=== PATIENT | male | born 1945 | race Caucasian/White ===

== ENCOUNTER → 2018-12-05 12:21 | Outpatient (CLI) | payer MEDICARE, SELFPAY ==
--- NOTE | 2018-12-05 12:26 | XR_ITS ---
XR chest 2V HISTORY: Shortness of breath, swelling and fatigue ITS.REASON: SOB ORDERING PHYSICIAN: Lucina Vásquez APRN PATIENT AGE: 73 years COMPARISON: None FINDINGS: There are no previous exams available for comparison. There is a bipolar pacemaker present from left subclavian approach. Normal heart size. There is patchy density in the right mid to upper lung zone and in the right infrahilar region which may be due to an area of atelectasis or infiltrate or even pulmonary fibrotic change. No previous exams are available for comparison. There are mild degenerative changes in the thoracic spine. IMPRESSION: Patchy density right upper lobe and in the right infrahilar region which may be due to an area of atelectasis, infiltrate, or fibrosis.
== END ==
PROVIDERS: PCP Nurse Practitioner; Visit Provider Nurse Practitioner
DX: R06.02 Shortness of breath (principal)
CPT/HCPCS: 71046

== ENCOUNTER → 2018-12-13 07:51 | Outpatient (CLI) | payer MEDICARE, SELFPAY ==
--- NOTE | 2018-12-13 | CA_ITS ---
PROCEDURE: 2-D M-mode and color Doppler study INDICATIONS FOR THE TEST: Chest pain COPD Heart Murmur Tobacco Smoking Palpitations FatigueX Syncope EdemaX Hypertension Diabetes Mellitus Rheumatic Fever SOBXDOE Obesity Hyperlipidemia Family History HD Additional History PP PATIENT INFORMATION HEIGHT: 74 WEIGHT:180 GENDER: Male B/P:110/70 2-D/M-MODE INTERPRETATION: 2-D MEASUREMENTS OBSERVED VALUES IN CMS Right Ventricular Dimension (RVDd) 2.6 Interventricular Septum (Thickness)(IVsd) .9 Left Ventricular Internal Dimensions(LVIDd) 5.4 Left Ventricular Posterior Wall (Thickness)(LVPWd) .9 Aortic Root 3.4 Aortic Cusp Separation 1.9 Left Atrial Dimensions (LAD) 3.5 2D 1. Left atrium is mildly enlarged, left ventricle is normal size, there is no concentric left ventricular hypertrophy, visually estimated ejection fraction 55% with no regional wall motion abnormality. 2. The right atrium and right ventricle are mildly enlarged with normal contractility. 3. The aortic valve is thickened and gastritis leaflet continue to display mobility. 4. The mitral and tricuspid valvular grossly normal. 5. The pulmonic valve is poorly visualized. 6. No significant pericardial effusion noted. DOPPLER INTERROGATION: Doppler interrogation of the aortic, mitral and tricuspid valvular presence of mild mitral and tricuspid regurgitation, tricuspid regurgitation jet velocity is inadequate for calculation of the right ventricular systolic pressure, grade 1 diastolic dysfunction seen without tissue Doppler evidence of raised left atrial pressure. CONCLUSION: 1. Mild biatrial enlargement, normal left ventricular size, visually estimated ejection fraction 55% with no regional wall motion abnormality, grade 1 diastolic dysfunction seen without tissue Doppler evidence of raised left atrial pressure. 2. Mildly enlarged right ventricle with normal contractility. 3. Thickened and calcified aortic valve without aortic stenosis aortic insufficiency. 4. Mild mitral and tricuspid regurgitation 5. No significant pericardial effusion noted.
== END ==
PROVIDERS: PCP Family Medicine; Visit Provider Nurse Practitioner
DX: R60.0 Localized edema (principal)
CPT/HCPCS: 93306

== ENCOUNTER → 2018-12-20 09:26 | Outpatient (CLI) | payer MEDICARE, SELFPAY ==
[2018-12-20 10:23] LABS: Basophils % 0.1 % (0.1-2.0); Eosinophils % 0.1 % (0.1-12.0); Hematocrit 42.1 % (42.0-52.0); Hemoglobin 13.5 g/dL (14.1-18.0); Lymphocytes # 2.1 K/mm3 (0.7-4.5); Lymphocytes % 22.6 % (10-50); Mean Corpuscular HGB Conc 32.1 g/dL (31.8-35.4); Mean Corpuscular Hemoglobin 29.4 pg (27.0-31.2); Mean Corpuscular Volume 91.5 fl (80-94); Mean Platelet Volume 7.4 fl (7.4-10.4); Monocytes # 0.7 K/mm3 (0.1-1.0); Monocytes % 7.3 % (1.7-9.3); Neutrophils # 6.4 K/mm3 (1.8-7.8); Neutrophils % 69.8 % (37.0-80.0); Platelet Count 219 K/mm3 (142-424); Red Cell Distribution Width 13.6 % (11.5-17.5); White Blood Count 9.1 K/mm3 (4.8-10.8)
[2018-12-20 13:43] LABS: Chol/HDL Ratio 3.1 (1-3.5); Cholesterol 152 mg/dL (140-200); Creatine Kinase 52 U/L (39-308); HDL Cholesterol 49 mg/dL (27-67); Iron 71 ug/dl (28-170); LDL Cholesterol 91 mg/dL (0-130); Magnesium 1.9 mg/dL (1.4-2.2); Prostate Specific Ag Screen 5.6 ng/mL (0.0-4.0); Thyroid Stimulating Hormone 2.44 uIU/ml (0.358-3.740); Triglycerides 60 mg/dL (30-200); VLDL Cholesterol 12 mg/dL (0-40)
[2018-12-21 17:12] LABS: Vitamin B12 299 pg/mL (232-1245)
[2018-12-21 17:13] LABS: Folate 9.6 ng/mL (>3.0); Vitamin D 25 Hydroxy 39.1 ng/mL (30.0-100.0)
== END ==
PROVIDERS: Visit Provider Family Medicine
DX: E78.5 Hyperlipidemia, unspecified (principal); R53.83 Other fatigue; R60.0 Localized edema; Z12.5 Encounter for screening for malignant neoplasm of prostate; D64.9 Anemia, unspecified
CPT/HCPCS: 36415; 80061; 82550; 82607; 82652; 82746; 83540; 83735; 84443; 85025; G0103

== ENCOUNTER → 2019-04-01 11:25 | Outpatient (CLI) | payer MEDICARE, SELFPAY ==
[2019-04-01 14:26] LABS: Prostate Specific Ag, Diagnost 6.51 ng/mL (0.0-4.0)
== END ==
PROVIDERS: Visit Provider Urology
DX: R97.20 Elevated prostate specific antigen [PSA] (principal)
CPT/HCPCS: 36415; 84153

== ENCOUNTER → 2019-06-18 14:54 | Outpatient (CLI) | payer MEDICARE, SELFPAY ==
[2019-06-18 17:24] LABS: Prostate Specific Ag, Diagnost 0.05 ng/mL (0.0-4.0)
== END ==
PROVIDERS: Visit Provider Urology
DX: C61 Malignant neoplasm of prostate (principal)
CPT/HCPCS: 36415; 84153

== ENCOUNTER → 2020-07-27 11:31 | Outpatient (CLI) | payer MEDICARE, SELFPAY ==
[2020-07-28 10:37] LABS: Covid-19 Nasal PCR Sendout P&C Negative
== END ==
PROVIDERS: PCP Family Medicine; Visit Provider Dermatology
DX: Z01.818 Encounter for other preprocedural examination (principal); Z20.822 Contact with and (suspected) exposure to COVID-19
CPT/HCPCS: U0004

== ENCOUNTER → 2020-08-02 17:28 | Outpatient (CLI) | payer MEDICARE, SELFPAY | PROVIDERS: PCP Family Medicine; Referring Provider Urology; Visit Provider Urology | DX: Z01.818 Encounter for other preprocedural examination (principal); Z20.822 Contact with and (suspected) exposure to COVID-19 | CPT/HCPCS: U0003 ==

== ENCOUNTER 2021-10-10 12:53 | Emergency (ER) | payer MEDICARE, SELFPAY ==
[2021-10-10 12:54] VITALS: BP 135/83; PULSE 64; RESP 18; TEMP 36.8; O2SAT 94; BMI 24.4
--- NOTE | 2021-10-10 12:54 | HMH.EDSOB ---
ED Disposition Clinical Impression: Pneumonia Qualifiers: Pneumonia type: due to unspecified organism Laterality: bilateral Disposition: Home, Self-Care Condition on Discharge: Fair Instructions: Pneumonia-Adult Additional Instructions: He is continue taking all medications as prescribed. Follow-up with your primary care physician in about 2 to 3 days tomorrow have a checkup. Return to the emergency department immediately if you feel worse in any way. Prescriptions: levoFLOXacin [Levaquin 500mg tab] 500 mg PO DAILY #10 tab Transmission Status: Pending to [id number] Referrals: Juan Peterson MD [Primary Care Provider] - - Critical Care Critical Care Time: No Attestation: On , the high probability of a clinically significant, sudden or life threatening deterioration of the following system(s) required my full and direct attention, intervention and personal management. The time I documented below is in addition to time spent performing reported procedures but includes the following listed in this critical care notation. Medical Decision Making - Medical Records Medical records reviewed: Yes: I reviewed the patient's medical records. - Michael Inquiry Pt receiving controlled substance: No Vital Signs: 10/10/21 12:54 10/10/21 13:31 10/10/21 14:00 Temperature 98.2 F Temperature Source Oral Pulse Rate 57 L 53 L Pulse Rate [Right] 64 Respiratory Rate 18 Blood Pressure 120/78 136/72 Blood Pressure [Right Arm] 135/83 Blood Pressure Mean 98 89 Blood Pressure Mean [Right Arm] 100 Blood Pressure Source [Right Arm] Automatic Cuff Blood Pressure Position [Right Arm] Sitting 02 Sat by Pulse Oximetry 94 L 96 Oxygen Delivery Method Room Air - Lab Data Lab results reviewed: Yes: I reviewed the patient's lab results. Lab Results 10/10/21 13:17: WBC 11.6 H, RBC 3.77 L, Hgb 12.1 L, Hct 36.8 L, MCV 97.6 H, MCH 32.1 H, MCHC 32.9, RDW 15.0, Plt Count 193, MPV 8.4, Neut % (Auto) 78.3, Lymph % (Auto) 16.8, [place] % (Auto) 3.5, Eos % (Auto) 0.9, Baso % (Auto) 0.5, Neut # (Auto) 9.1 H, Lymph # (Auto) 2.0, [place] # (Auto) 0.4, Eos # (Auto) 0.1, Baso # (Auto) 0.1 10/10/21 13:17: Sodium 136, Potassium 4.2, Chloride 105, Carbon Dioxide 25, Anion Gap 10.2, BUN 23 H, Creatinine 1.20, Estimated Creat Clear 64, Estimated GFR 59, Est GFR ( Amer) 72, Glucose 99, Calcium 7.6 L, Total Bilirubin 1.4 H, AST 41, ALT 32, Alkaline Phosphatase 118, Total Protein 8.3 H, Albumin 3.9, Globulin 4.4 H, Albumin/Globulin Ratio 0.9 L Result diagrams: 10/10/21 13:17 10/10/21 13:17 Orders (Tests/Meds): ED MEDICATIONS Generic Name Dose Route Start Last Admin Trade Name Freq PRN Reason Stop Dose Admin Sodium Chloride 10 ml 10/10/21 13:08 Sodium Chloride 0.9% 10ml Flush Syringe IV 11/09/21 13:07 NEEDED PRN Maintain IV Site Discontinued Medications Generic Name Dose Route Start Last Admin Trade Name Freq PRN Reason Stop Dose Admin Iopamidol 70 ml 10/10/21 14:28 10/10/21 14:29 Iopamidol-370 (76%);100ml Bottle IV 10/10/21 14:29 70 ml ONCE ONE Administration Sodium Chloride 10 ml 10/10/21 14:28 10/10/21 14:29 Sodium Chloride 0.9% 10ml Syr (Rad Only) IV 10/10/21 14:29 10 ml ONCE ONE Administration Sodium Chloride 50 ml 10/10/21 14:28 10/10/21 14:29 0.9 % Sodium Chloride 50 Ml Vial IV 10/10/21 14:29 50 ml ONCE ONE Administration - CT Data CT Scan: Chest Time Received: 15:[address] Reviewed: Yes: I have viewed the radiologist's interpretation Preliminary Findings: Abnormal (No evidence of pulmonary embolus, diffuse airspace disease consistent with atypical pneumonia and/or edema.) Medical Decision Narrative: Patient's work-up in the emergency department did not reveal any evidence of pulmonary emboli. The CT of the chest does show airspace disease which could be secondary to edema and or pneumonia. The patient does not have any pitting pedal e
--- NOTE | 2021-10-10 13:02 | CT_ITS ---
PROCEDURE INFORMATION: Exam: CTA Chest With Contrast Exam date and time: 10/10/2021 2:13 PM Age: 75 years old Clinical indication: Shortness of breath; Additional info: R/O pe// patient has known bone mets and previous prostrate cancer, having SOB with history of previous dvt- 70ml of isovue given for contrast study / unable to lift arms overhead due to cancer in right shoulder and painful. TECHNIQUE: Imaging protocol: Computed tomographic angiography of the chest with contrast. 3D rendering (Not supervised by radiologist): MIP and/or 3D reconstructed images were created by the technologist. Radiation optimization: All CT scans at this facility use at least one of these dose optimization techniques: automated exposure control; mA and/or kV adjustment per patient size (includes targeted exams where dose is matched to clinical indication); or iterative reconstruction. Contrast material: ISOVUE; Contrast volume: 70 ml; Contrast route: INTRAVENOUS (IV); COMPARISON: CR (CHEST PA, CHEST, CHEST PA) 12/05/2018 12:47 PM FINDINGS: Tubes, catheters and devices: Dual chamber pacemaker/cardioverter in appropriate position with lead tips in the right atrium and right ventricle. Pulmonary arteries: Normal. No pulmonary emboli. Aorta: The aorta demonstrates mild atherosclerotic calcification. No acute pathology in the aorta. Thyroid: The thyroid gland is normal. Lungs: Prior right upper lobectomy. Diffuse and multifocal/bilateral ground-glass and patchy airspace opacifications are seen throughout the lungs. There is also interlobular septal thickening appreciated throughout the lungs as well. There is mid to basal predominant right pleural thickening. There is mild right basal pleuroparenchymal scarring likewise appreciated. Pleural spaces: There are no pleural effusions present. There is no evidence of pneumothorax. Heart: There is calcification of the aortic valve annulus. There is severe atherosclerotic calcification of the coronary arteries. The heart is mildly enlarged. No pericardial thickening or effusion. Lymph nodes: Unremarkable. No enlarged lymph nodes. Kidneys and ureters: There are multiple right renal collecting system calcifications. Bones/joints: Redemonstration of known multifocal sclerotic and lytic skeletal metastasis. For example, there is a sclerotic metastasis in the posterior segment of the right 10th rib (image 98 series 5). As another example, there is extensive sclerotic and lytic metastasis in the right humeral head and throughout the visualized segments of the right humerus. As another example, there is sclerotic metastasis appreciated in the left scapula (image 23 series 5). As a last example, there are sclerotic metastatic lesions appreciated in the T11 vertebra (images 57 and 53 of series 1002). No acutely displaced skeletal fractures are appreciated. Soft tissues: Unremarkable. Other findings: The visualized intra-abdominal structures demonstrate no acute findings. IMPRESSION: 1. No definitive evidence for pulmonary emboli. 2. Diffuse and severe bilateral acute airspace disease. Differential diagnosis would include: Pulmonary edema, atypical infectious pneumonia, or chemotherapy induced pneumonitis (if the patient is receiving chemotherapeutic treatment). 3. Mid to basal right posterior pleural thickening. Differential diagnosis would include: Sequela of prior treatment or radiation, chronic pleural fibrosis, or infiltrative pleural disease (felt less likely). 4. Prior right upper lobectomy with expected right upper lobe scarring and atelectasis. 5. Known extensive skeletal metastasis. 6. Other incidental fi
[2021-10-10 13:31] VITALS: BP 120/78; PULSE 57; O2SAT 96
[2021-10-10 13:34] LABS: Basophils # 0.1 K/mm3 (0-0.2); Basophils % 0.5 % (0.1-2.0); Eosinophils # 0.1 K/mm3 (0.0-0.4); Eosinophils % 0.9 % (0.1-12.0); Hematocrit 36.8 % (42.0-52.0); Hemoglobin 12.1 g/dL (14.1-18.0); Lymphocytes % 16.8 % (10-50); Mean Corpuscular HGB Conc 32.9 g/dL (31.8-35.4); Mean Corpuscular Hemoglobin 32.1 pg (27.0-31.2); Mean Corpuscular Volume 97.6 fl (80-94); Mean Platelet Volume 8.4 fl (7.4-10.4); Monocytes # 0.4 K/mm3 (0.1-1.0); Monocytes % 3.5 % (1.7-9.3); Neutrophils # 9.1 K/mm3 (1.8-7.8); Neutrophils % 78.3 % (37.0-80.0); Platelet Count 193 K/mm3 (142-424); Red Blood Count 3.77 M/mm3 (4.60-6.20); White Blood Count 11.6 K/mm3 (4.8-10.8)
[2021-10-10 13:46] LABS: Chloride 105 mmol/L (98-107); Potassium 4.2 mmoL/L (3.5-5.1); Sodium 136 mmol/L (136-145)
[2021-10-10 13:49] LABS: Alanine Aminotransferase 32 U/L (12-78); Albumin Level 3.9 g/dl (3.5-5.0); Albumin/Globulin Ratio 0.9 (1.1-1.8); Alkaline Phosphatase 118 U/L (38-126); Anion Gap 10.2 mEq/L (5-15); Aspartate Amino Transferase 41 U/L (17-59); Bilirubin,Total 1.4 mg/dl (0.2-1.3); Blood Urea Nitrogen 23 mg/dl (9-20); Calcium 7.6 mg/dl (8.4-10.2); Carbon Dioxide 25 mmol/L (22.0-30.0); Creatinine Clearance Estimated 64 mL/min (50-200); Estimated Glomerular Filt Rate 59 ml/min (>60); GFR (African American) 72 ML/MIN (>60); Globulin 4.4 g/dL (1.3-3.2); Glucose 99 mg/dl (74-100); Total Protein,Serum 8.3 g/dl (6.3-8.2)
[2021-10-10 14:00] VITALS: BP 136/72; PULSE 53
--- NOTE | 2021-10-10 14:02 | PC.NURSE ---
Pt resting in bed. Advises he feels better with the O2 at 2lpm, feels like he isn't so short of air. No new needs at this time
--- NOTE | 2021-10-10 14:10 | PC.NURSE ---
Pt going over for CT
--- NOTE | 2021-10-10 15:12 | PC.NURSE ---
Advised pt we were waiting on his CT results. No new needs at this time
[2021-10-10 15:36] VITALS: BP 134/79; PULSE 74; RESP 16; TEMP 36.8; O2SAT 98
== END 2021-10-10 15:38 | disposition home or self-care (01) ==
PROVIDERS: Emergency Provider Emergency Medicine; PCP Family Medicine
DX: J18.9 Pneumonia, unspecified organism (principal); I10 Essential (primary) hypertension; Z79.01 Long term (current) use of anticoagulants; Z85.118 Personal history of other malignant neoplasm of bronchus and lung; Z85.830 Personal history of malignant neoplasm of bone; Z86.718 Personal history of other venous thrombosis and embolism
CPT/HCPCS: 71275; 80053; 85025; 99284; Q9967

== ENCOUNTER 2022-01-14 13:34 | Inpatient (IN) | payer MEDICARE, SELFPAY ==
[2022-01-14] VITALS (24 sets, daily range): BP systolic 143–198; BP diastolic 77–99; PULSE 60–105; RESP 12–20; TEMP 36.4–37; O2SAT 95–100; BMI 23.7; BMI 23.3
--- NOTE | 2022-01-14 13:35 | PC.NURSE ---
pt arrived 1334- pt transported to CT per EMS stretcher upon his arrival to ED as stroke alert protocol. Radiology staff notified of stroke alert pt incoming airplane captain to arrival of pt and at arrival of EMS. ER MD did quick assessment of pt on EMS stretcher upon pt arrival at pt was going to CT scanner.
--- NOTE | 2022-01-14 13:38 | HMH.EDNEU ---
ED Disposition Clinical Impression: CVA (cerebral vascular accident) Qualifiers: CVA mechanism: unspecified Qualified Code(s): I63.9 - Cerebral infarction, unspecified Disposition: Admitted As Inpatient Condition on Discharge: Serious Referrals: Narendra Silverio MD [Primary Care Provider] - - Critical Care Critical Care Time: No Attestation: On , the high probability of a clinically significant, sudden or life threatening deterioration of the following system(s) required my full and direct attention, intervention and personal management. The time I documented below is in addition to time spent performing reported procedures but includes the following listed in this critical care notation. Medical Decision Making - Medical Records Medical records reviewed: Yes: I reviewed the patient's medical records. - Michael Inquiry Pt receiving controlled substance: No Vital Signs: 01/14/22 13:34 01/14/22 14:20 01/14/22 14:30 Temperature 98.6 F Temperature Source Oral Pulse Rate 62 62 Pulse Rate [Radial] 62 Respiratory Rate 16 12 12 Blood Pressure 165/93 H 176/90 H Blood Pressure [Right Radial Artery] 186/86 H Blood Pressure Mean 121 118 Blood Pressure Mean [Right Radial Artery] 119 Blood Pressure Position [Right Radial Artery] Sitting 02 Sat by Pulse Oximetry 98 98 98 Oxygen Delivery Method Room Air Room Air Room Air 01/14/22 14:50 01/14/22 15:00 01/14/22 15:11 Temperature Temperature Source Pulse Rate 60 66 66 Pulse Rate [Radial] Respiratory Rate 13 13 14 Blood Pressure 177/93 H 176/87 H 168/92 H Blood Pressure [Right Radial Artery] Blood Pressure Mean 111 116 117 Blood Pressure Mean [Right Radial Artery] Blood Pressure Position [Right Radial Artery] 02 Sat by Pulse Oximetry 99 98 100 Oxygen Delivery Method Room Air Room Air Room Air 01/14/22 15:25 01/14/22 15:30 01/14/22 15:41 Temperature Temperature Source Pulse Rate 62 68 65 Pulse Rate [Radial] Respiratory Rate 13 19 16 Blood Pressure 184/94 H 173/99 H 162/80 H Blood Pressure [Right Radial Artery] Blood Pressure Mean 122 117 107 Blood Pressure Mean [Right Radial Artery] Blood Pressure Position [Right Radial Artery] 02 Sat by Pulse Oximetry 99 100 100 Oxygen Delivery Method Room Air Room Air Room Air 01/14/22 15:51 01/14/22 16:00 Temperature Temperature Source Pulse Rate 66 68 Pulse Rate [Radial] Respiratory Rate 18 20 Blood Pressure 185/91 H 185/94 H Blood Pressure [Right Radial Artery] Blood Pressure Mean 108 109 Blood Pressure Mean [Right Radial Artery] Blood Pressure Position [Right Radial Artery] 02 Sat by Pulse Oximetry 99 99 Oxygen Delivery Method Room Air Room Air - Lab Data Lab results reviewed: Yes: I reviewed the patient's lab results. Lab Results 01/14/22 13:40: WBC 5.7, RBC 3.97 L, Hgb 12.6 L, Hct 38.0 L, MCV 95.7 H, MCH 31.8 H, MCHC 33.3, RDW 15.1, Plt Count 96 L, MPV 9.1, Neut % (Auto) 56.8, Lymph % (Auto) 29.6, [place] % (Auto) 8.4, Eos % (Auto) 4.2, Baso % (Auto) 1.0, Neut # (Auto) 3.2, Lymph # (Auto) 1.7, [place] # (Auto) 0.5, Eos # (Auto) 0.2, Baso # (Auto) 0.1 01/14/22 13:40: PT 14.0 H, INR 1.26 H, APTT 27.5 01/14/22 13:41: Sodium 136, Potassium 4.6, Chloride 105, Carbon Dioxide 27, Anion Gap 8.6, BUN 22 H, Creatinine 0.90, Estimated Creat Clear 74, Estimated GFR 82, Est GFR ( Amer) 100, Glucose 137 H, Calcium 7.6 L Result diagrams: 01/14/22 13:40 01/14/22 13:41 Orders (Tests/Meds): ED MEDICATIONS Generic Name Dose Route Start Last Admin Trade Name Freq PRN Reason Stop Dose Admin Calcium Gluconate 2,000 mg/ 120 mls @ 60 mls/hr 01/14/22 14:38 01/14/22 14:54 Sodium Chloride IV 01/14/22 16:37 60 mls/hr ONCE ONE Administration Discontinued Medications Generic Name Dose Route Start Last Admin Trade Name Freq PRN Reason Stop Dose Admin Aspirin 324 mg 01/14/22 14:44 01/14/22 14:55 Aspirin 81mg Chewable Tablet PO 0
--- NOTE | 2022-01-14 13:39 | PC.NURSE ---
PT RETURN TO CT
--- NOTE | 2022-01-14 13:44 | CT_ITS ---
FINAL REPORT TECHNIQUE: Axial images were performed through the brain.This study was performed with techniques to keep radiation doses as low as reasonably achievable, (ALARA). Individualized dose reduction techniques using automated exposure control or adjustment of mA and/or kV according to the patient''s size were employed. CLINICAL HISTORY: CVA, stroke alert FINDINGS: There is mild atrophy. The ventricles are normal in size for the degree of atrophy. There is no extra-axial fluid or midline shift. There is no evidence of acute hemorrhage or mass. IMPRESSION: Atrophy. No acute intracranial process. Reviewed, Interpreted and Dictated by Mark Freitas MD Transcribed by Awais Yeager Authenticated and [facility]
--- NOTE | 2022-01-14 13:45 | XR_ITS ---
FINAL REPORT CLINICAL HISTORY: CVA, hx of lung cancer FINDINGS: There is mild cardiomegaly. There is a left-sided pacemaker. The mediastinum is normal. There are chronic changes in the lung bases. There are no pleural effusions. There is no pneumothorax. There is no osseous abnormality. IMPRESSION: No acute cardiopulmonary process Reviewed, Interpreted and Dictated by Mark Freitas MD Transcribed by Awais Yeager Authenticated and [facility]
--- NOTE | 2022-01-14 13:56 | ECG_ITS ---
APPROVED REPORT Exam: Resting ECG HR:60 bpm ECG Measurements Heart Rate 60 AXES NH 219 P 15 QRSd 92 QRS 17 QT 447 T -5 QTc 448 Conclusion SINUS RHYTHM WITH FIRST DEGREE AV BLOCK ABNORMAL ECG UNCONFIRMED REPORT Electronically signed by : Bassam Bella MD 01/16/2022 16:29:19
--- NOTE | 2022-01-14 13:56 | PC.NURSE ---
pt daughter john called upon pt arrival, left her phone number for return call for any medical decision making related patients has dementia . Notified ER MD and primary nurse Mariangelrn
[2022-01-14 14:01] LABS: Basophils # 0.1 K/mm3 (0-0.2); Eosinophils # 0.2 K/mm3 (0.0-0.4); Eosinophils % 4.2 % (0.1-12.0); Hemoglobin 12.6 g/dL (14.1-18.0); Lymphocytes # 1.7 K/mm3 (0.7-4.5); Lymphocytes % 29.6 % (10-50); Mean Corpuscular HGB Conc 33.3 g/dL (31.8-35.4); Mean Corpuscular Hemoglobin 31.8 pg (27.0-31.2); Mean Corpuscular Volume 95.7 fl (80-94); Mean Platelet Volume 9.1 fl (7.4-10.4); Monocytes # 0.5 K/mm3 (0.1-1.0); Monocytes % 8.4 % (1.7-9.3); Neutrophils # 3.2 K/mm3 (1.8-7.8); Neutrophils % 56.8 % (37.0-80.0); Platelet Count 96 K/mm3 (142-424); Red Blood Count 3.97 M/mm3 (4.60-6.20); Red Cell Distribution Width 15.1 % (11.5-17.5); White Blood Count 5.7 K/mm3 (4.8-10.8)
[2022-01-14 14:02] LABS: Activated Partial Thrombo Time 27.5 seconds (22.8-30.6); INR 1.26 (0.9-1.1)
[2022-01-14 14:03] LABS: Chloride 105 mmol/L (98-107)
[2022-01-14 14:04] LABS: Potassium 4.6 mmoL/L (3.5-5.1)
[2022-01-14 14:05] LABS: Sodium 136 mmol/L (136-145)
[2022-01-14 14:06] LABS: Blood Urea Nitrogen 22 mg/dl (9-20); Creatinine Clearance Estimated 74 mL/min (50-200); Estimated Glomerular Filt Rate 82 ml/min (>60); GFR (African American) 100 ML/MIN (>60)
[2022-01-14 14:07] LABS: Glucose 137 mg/dl (74-100)
[2022-01-14 14:08] LABS: Anion Gap 8.6 mEq/L (5-15); Carbon Dioxide 27 mmol/L (22.0-30.0)
--- NOTE | 2022-01-14 14:18 | PC.NURSE ---
on the phone with [facility] stroke Doctor
[2022-01-14 14:20] LABS: Calcium 7.6 mg/dl (8.4-10.2)
--- NOTE | 2022-01-14 14:20 | CT_ITS ---
FINAL REPORT TECHNIQUE: Thin section axial images were performed through the head in a CTA protocol. MIP reconstruction sagittal and coronal images were submitted. This study was performed with techniques to keep radiation doses as low as reasonably achievable (ALARA). Individualized dose reduction techniques using automated exposure control or adjustment of mA and/or kV according to the patient's size were employed. CLINICAL HISTORY: CVA, right sided weakness FINDINGS: CTA head: The distal vertebral, basilar and distal internal carotid arteries have an unremarkable appearance. No aneurysm is seen. Major intracranial vessels are patent without significant stenosis. IMPRESSION: No aneurysm or stenosis. Reviewed, Interpreted and Dictated by Mark Freitas MD Transcribed by Awais Yeager Authenticated and . [facility]
--- NOTE | 2022-01-14 14:20 | CT_ITS ---
FINAL REPORT CLINICAL HISTORY: CVA, right sided weakness FINDINGS: Thin section axial CT with IV contrast supplemented with multiplanar reconstruction under CT angiogram protocol. This study was performed with techniques to keep radiation doses as low as reasonably achievable (ALARA). Individualized dose reduction techniques using automated exposure control or adjustment of mA and/or kV according to the patient''s size were employed. NASCET criteria was utilized during interpretation. Aortic arch: Arch shows no significant narrowing. Great vessel origins are widely patent. Right carotid: No significant stenosis is seen of the cervical common or internal carotid artery. Left carotid: Moderate calcification at the bifurcation. No significant stenosis is seen of the cervical common or internal carotid artery. Vertebral: Left vertebral artery is dominant. No significant stenosis is present. IMPRESSION: No significant stenosis. Reviewed, Interpreted and Dictated by Mark Freitas MD Transcribed by Awais Yeager Authenticated and [facility]
--- NOTE | 2022-01-14 14:20 | PC.NURSE ---
per dr. jeffrey pt not accepted by [facility] at this time, he spoke with dr. marion jeffrey reports he is going to do a CTA on pt, if there is a LVO we will call [facility] stroke team back.
--- NOTE | 2022-01-14 14:34 | PC.NURSE ---
TO CT PER STRETCHER
--- NOTE | 2022-01-14 14:46 | PC.NURSE ---
pt return from CT via stretcher
--- NOTE | 2022-01-14 14:58 | PC.NURSE ---
suharn at BS for pt care. Pt awake, resting in bed, pt has family at BS
--- NOTE | 2022-01-14 15:07 | PC.NURSE ---
UP DATED FAMILY ON PLAN OF CARE
--- NOTE | 2022-01-14 15:30 | CA_ITS ---
FINAL REPORT CLINICAL HISTORY: cva work up, right sided weakness. Patient has lung cancer with mets to ribs and shoulder. Patient is in great deal of pain, in particular right shoulder/neck/arm. FINDINGS: An ultrasound of the carotid arteries was performed. Duplex Doppler evaluation with spectral analysis was performed. The peak systolic velocity of the right common carotid artery is 110 cm/s. The peak systolic velocity of the right internal carotid artery is 78 cm/s and end diastolic velocity 20 cm/s. A minimal amount of plaque is present. The right external carotid artery is patent. The right vertebral artery is patent with antegrade flow. The peak systolic velocity of the left common carotid artery is 94 cm/s. The peak systolic velocity of the left internal carotid artery is 99 cm/s and end diastolic velocity 24 cm/s. A minimal amount of plaque is present. The left external carotid artery is patent. The left vertebral artery is patent with antegrade flow. IMPRESSION: Less than 50% bilateral carotid stenoses. Bilateral patent vertebral arteries with antegrade flow. Reviewed, Interpreted and Dictated by Mark Freitas MD Transcribed by Awais Yeager Authenticated and [facility]
--- NOTE | 2022-01-14 15:31 | PC.NURSE ---
notified echo lab of carotid doppler order, spoke with anthony
--- NOTE | 2022-01-14 15:45 | PC.NURSE ---
MD AT BEDSIDE TO REEVALUATE PT, FAMILY UPDATED ON POC AT THIS TIME
--- NOTE | 2022-01-14 15:45 | PC.NURSE ---
JENNY JORGE at reassessing pt
--- NOTE | 2022-01-14 16:00 | PC.NURSE ---
SPOKE WITH PT'S DAUGHTER ON PHONE AND UPDATED ON PLAN OF CARE
--- NOTE | 2022-01-14 16:05 | PC.NURSE ---
CV lab staff gave ER verbal report at this time from doppler
--- NOTE | 2022-01-14 16:10 | PC.NURSE ---
waiting position clerk back from dr. gibbs, office staff states he in room with a pt
--- NOTE | 2022-01-14 16:24 | PC.NURSE ---
JENNY JORGE spoke with dr. gibbs
--- NOTE | 2022-01-14 16:24 | PC.NURSE ---
Care management has been contacted for admission
--- NOTE | 2022-01-14 16:26 | PC.NURSE ---
per ER request contacted MRI staff to see about pt getting an MRI today r/t cva work up. Spoke with jona, states she should be able to work pt in, states to call care management to okay MRI. Spoke with Sherlyn in care management, okayed MRI for pt. Contacted jona back to notify her that MRI is okayed by care management, JENNY JORGE wants pt to have MRI brain with out contrast. Jona states she will put the order in for t.
--- NOTE | 2022-01-14 16:29 | PC.NURSE ---
Called registration and notified them of admission. [facility] care management [phone] Notified ER staff of room assignment
--- NOTE | 2022-01-14 16:30 | PC.NURSE ---
PT C/O NUMBESS RT SIDE GETTING WORSE. PT STATES HE IS UNABLE TO LIFT RT ARM. INFORMED MD OF PT'S C/O
--- NOTE | 2022-01-14 16:30 | PC.NURSE ---
House called. Patient is going to room 208
--- NOTE | 2022-01-14 16:42 | PC.NURSE ---
PT STATES HE DID NOT APPLY HIS FENT[place] PATCH TODAY. PT BROUGHT HIS MEDS FROM HOME. SPOKE WITH DR DUDLEY AND STATES IT'S OK FOR PT TO APPLY HIS PATCH FROM HOME. FAMILY APPLIED PATCH TO RT SIDE CHEST.
[2022-01-14 16:48] LABS: Coronavirus 19, PCR Not Detected (NotDetected); Influenza A, PCR Not Detected (NotDetected); Influenza B, PCR Not Detected (NotDetected)
--- NOTE | 2022-01-14 17:00 | PC.NURSE ---
PT STATES FEELING IMPROVEMENT WITH PAIN MEDS GIVEN. PT FOLLOWS COMMANDS FAMILY AT BEDSIDE UPDATED ON PLAN OF CARE
--- NOTE | 2022-01-14 17:10 | PC.NURSE ---
Got report from ER nurse Abby. Told her to call me once serology was in an we will go get pt.
--- NOTE | 2022-01-14 17:15 | PC.NURSE ---
PT RESPONDS TO VERBAL STIMULI, FOLLOWS COMMANDS, PT ALERT AND ORIENTED X 3
--- NOTE | 2022-01-14 17:15 | PC.NURSE ---
REPORT CALLED TO FLOOR
--- NOTE | 2022-01-14 17:16 | PC.NURSE ---
FAMILY AT BEDSIDE
--- NOTE | 2022-01-14 17:30 | PC.NURSE ---
PT C/O INCREASING PAIN.
--- NOTE | 2022-01-14 17:31 | PC.NURSE ---
DR ARAYA AT BS
--- NOTE | 2022-01-14 20:27 | PC.NURSE ---
Patient's nurse notified myself of patient's sedated symptoms. Patient not able to follow commands, hard to arouse, confused times 4, and cannot carry normal conversation. Floor nurse notified myself that patient had been given dilaudid in ER for pain, n/v, and blood pressure control along with labetolol and a fentanyl patch. accounting supervisor called and notified of patient status and unable to complete NIH due to sedation. accounting supervisor proceeded to check mar and talked to ER nurse and doctor. I asked for possible narcan so we could assess patient's condition accurately but gatehouse attendant stated Dr. Harley said patient was acting this way when he first came into ER and if we took pain medication away then patient's pain would not be controlled and blood pressure would be high. ER nurse came to patient's bedside and stated once again patient was acting the same as when he came into ER. Fentanyl patch removed and disposed of by myself to possibly lessen sedation for assessment. Patient had also vomited a couple of times during bedside assessment and to weak to keep head up. Suction in place and used to maintain airway. Aspiration precautions initiated.
--- NOTE | 2022-01-14 21:33 | HMH.HP ---
*Admission Date: 01/14/22 *Chief complaint: CVA *History of present illness: Mr. Sneed is a 76-year-old white male with a history of advanced stage metastatic lung cancer and coronary artery disease who presented to the ER today as a stroke alert. Around 1300 hrs., he was sitting at his kitchen table with his when he suddenly started feeling bad and was having difficulty speaking. He tried to get up from the table and walk but could not move his right side. At this point, his called EMS and he was brought to the ER. His initial CT scan was negative. He was hypertensive on arrival. ER physician contacted the stroke team and because of the fact he is on Eliquis and hypertensive he was not a candidate for thrombolytics. They recommended CTA of the head and neck which was carried out with no findings of large vessel blockages or hemorrhagic stroke therefore he was not a candidate for transfer at . I have seen the patient at the bedside in the ER. His is present. She gives most of the history. He is somnolent but awakens and answers questions appropriately. He is soft-spoken but his speech is clear. Denies headache or visual disturbance. He has movement in his right arm and right leg but states they feel heavy. 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 He is being admitted at this time for close monitoring of his neurologic status. [facility] History Medical History: Reports:: Atherosclerotic Heart Disease, Cancer (stage 4 metastatic lung cancer), Hypertension, Internal Pacemaker (For sick sinus syndrome) Denies:: Cerebrovascular Accident, Diabetes Mellitus Type 1, Diabetes Mellitus Type 2 *Have you ever received a pneumonia vaccine?: No *Have you received a flu vaccine this season?: No Other Medical History: Reports: Cataracts (surgery), Chemotherapy (He is currently in a clinical trial at [place] ([id number])) Laterality Cases: Bilateral: Arthroscopy Knee (Meniscectomy) Other Surgeries: Yes: Angioplasty, Cancer Surgery (VATS?partial right upper lobectomy; radical prostatectomy), Cardiac Catheterization, Colonoscopy, Coronary Stent, Pacemaker Amputation: No Fractures: No - *Social History Last grade of school completed: Advanced degree Smoking Status: Never smoker Alcohol Intake: never Substance Use Type: denies use *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), 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) Housing: house Household Members: spouse *Travel in the last 8 weeks: None Family Hx:: Cancer (lung), Coronary Artery Disease Review of Systems - Constitutional Reports fatigue, Reports lack of energy, Reports weakness, Reports weight loss - Eyes Reports change in vision - ENT Denies abnormal hearing, Denies hoarseness - *Cardiovascular Denies chest pain, Denies shortness of breath, Denies leg swelling, Denies rapid, pounding, or irregular heartbeat - *Respiratory Denies chest congestion, Denies coughing up blood - *Gastrointestinal Reports nausea, Reports vomiting, Denies abdominal pain - *Genitourinary Denies difficulty urinating, Denies blood in urine - *Musculoskeletal Reports joint pain, Reports decreased muscle mass, Reports muscle weakness - Integumentary/Breasts Denies change in skin color, Denies rash - *Neurologic Reports other (See HPI) - Hematologic/Lymphatic Denies easy bruising Meds Home Medications Medication Instructions Recorded Confirmed Type Apixaban [Eliquis] 5 mg PO DAILY 01/14/22 01/14/22 History Celecoxib 100 mg PO BID 01/14/22 01/14/22 History Docusate Sodium [Docusate Sodium 100 mg PO BID 01/14/22 01/14/22 History 100mg Cap] Hydrocodone/Acetaminophen 1 tab PO QID 01/14/22 01/14/22 History [Hydrocodone-Acetamin 10-325 mg] Methylphenidate HCl 10 mg PO BID 01/14/22 01/14/22 History Pregabalin [Lyrica 25mg Cap] 25 mg PO HS 01/14/22 01/14/22 History Prochlorperazine Maleate 10 mg P
[2022-01-15] VITALS (8 sets, daily range): BP systolic 144–174; BP diastolic 67–89; PULSE 60–69; RESP 16–18; TEMP 36.9–37.6; O2SAT 96–98; BMI 23.1
--- NOTE | 2022-01-15 07:35 | PC.NURSE ---
Pt has NIH score of 7 at 2000, then 5 at 0000. Pt rested through the night. Pt has complained of nausea one time, treated prn per aug. Pt is on 1L NC O2 sat >95%. Pt took sip of water through the night to take scheduled meds, pt tolerated well. Pt is alert to self, name and birthday.
--- NOTE | 2022-01-15 10:55 | P.PN_ITS ---
Internal Medicine - PN: Subj *Date: 01/15/22 *Time: 10:55 Interval history: He apparently was rather sedated when he arrived to the floor last night after receiving a couple of doses of Dilaudid in the ER. About midnight he became more alert. He rested fairly well through the night last night and has no new complaints this morning. Subjectively states she feels a little better. Still has weakness of the right side. Exam Vital signs and Labs for Last 24 Hours: Temp Pulse Resp BP Pulse Ox 98.7 F 65 18 156/89 H 98 01/15/22 08:00 01/15/22 08:00 01/15/22 08:00 01/15/22 08:00 01/15/22 08:00 Laboratory Results - last 24 hr 01/14/22 13:40: WBC 5.7, RBC 3.97 L, Hgb 12.6 L, Hct 38.0 L, MCV 95.7 H, MCH 31.8 H, MCHC 33.3, RDW 15.1, Plt Count 96 L, MPV 9.1, Neut % (Auto) 56.8, Lymph % (Auto) 29.6, [place] % (Auto) 8.4, Eos % (Auto) 4.2, Baso % (Auto) 1.0, Neut # (Auto) 3.2, Lymph # (Auto) 1.7, [place] # (Auto) 0.5, Eos # (Auto) 0.2, Baso # (Auto) 0.1 01/14/22 13:40: PT 14.0 H, INR 1.26 H, APTT 27.5 01/14/22 13:41: Sodium 136, Potassium 4.6, Chloride 105, Carbon Dioxide 27, Anion Gap 8.6, BUN 22 H, Creatinine 0.90, Estimated Creat Clear 74, Estimated GFR 82, Est GFR ( Amer) 100, Glucose 137 H, Calcium 7.6 L 01/14/22 16:24: SARS-CoV-2 (PCR) Not detected, Influenza A Untype (PCR) Not detected, Influenza Type B (PCR) Not detected I & O for Last 24 hours: Intake & Output 01/12/22 01/13/22 01/14/22 01/15/22 11:59 11:59 11:59 11:59 Intake Total 460 / 460 Output Total 600 / 600 Balance -140 / -140 Weight 174 lb 8 oz Narrative: He is awake and answering questions appropriately. Speech is slightly dyspneic. Lungs are clear to auscultation. Heart is regular. He is able to move his right arm and right leg but both are somewhat ataxic. Assessment and Plan (1) CVA (cerebral vascular accident) Status: Acute Qualifiers: CVA mechanism: unspecified Qualified Code(s): I63.9 - Cerebral infarction, unspecified Category: Medical Code(s): I63.9 - Cerebral infarction, unspecified (2) Metastatic lung cancer (metastasis from lung to other site) Status: Acute Category: Medical Code(s): C34.90 - Malignant neoplasm of unsp ecified part of unspecified bronchus or lung (3) ASCVD (arteriosclerotic cardiovascular disease) Status: Acute Category: Medical Code(s): I25.10 - Atherosclerotic heart disease of [place] coronary artery without angina pectoris (4) Presence of permanent cardiac pacemaker Status: Acute Category: Medical Code(s): Z95.0 - Presence of cardiac pacemaker - Assessment and plan all Dx Assessment and Plan for all problems:: Clinically stable. Blood pressure is in an acceptable range. Family is at the bedside. His daughter, I understand, is an occupational therapist and will try to do some range of motion exercises today and sit him at the bedside.
--- NOTE | 2022-01-15 11:04 | PC.NURSE ---
PT eval order placed, antoinette notified.
--- NOTE | 2022-01-15 11:04 | PC.NURSE ---
Speech therapist is not confidential secretary for the weekend per aviation warfare systems operator.
--- NOTE | 2022-01-15 13:12 | HMH.PHAINT ---
MEDICATION RECONCILIATION COMPLETE USING EXTERNAL PHARMACY FILL HISTORY AND PATIENT BOTTLES.
--- NOTE | 2022-01-15 13:13 | P.CONPHA_ITS ---
[facility] Pharmacy VTE Monitoring - Patient Demographics Admission date: 01/14/22 Report Date: 01/15/22 Time: 13:13 Allergies/Adverse Reactions: Patient Allergies No Known Allergies Allergy (Verified 06/18/19 14:27) Height: 1.85 m Weight: 79.152 kg Patient Problems: Current Active Problems CVA (cerebral vascular accident) (Acute) Metastatic lung cancer (metastasis from lung to other site) (Acute) ASCVD (arteriosclerotic cardiovascular disease) (Acute) Presence of permanent cardiac pacemaker (Acute) - VTE Risk Labs: VTE Related Lab Results Hgb 12.6 g/dL (14.1-18.0) L 01/14/22 13:40 Hct 38.0 % (42.0-52.0) L 01/14/22 13:40 Plt Count 96 K/mm3 (142-424) L 01/14/22 13:40 PT 14.0 seconds (10.1-12.5) H 01/14/22 13:40 INR 1.26 (0.9-1.1) H 01/14/22 13:40 APTT 27.5 seconds (22.8-30.6) 01/14/22 13:40 BUN 22 mg/dl (9-20) H 01/14/22 13:41 Creatinine 0.90 mg/dl (0.66-1.25) 01/14/22 13:41 Estimated Creat Clear 74 mL/min (50-200) 01/14/22 13:41 Was VTE Risk Assessment Performed: No Clinical Trial Participant: Yes - Prophylaxis VTE Prophylaxis Ordered?: Yes Types of VTE Prophylaxis: TEDS Knee High Location of Applied Device: Bilateral Lower Extremeties
--- NOTE | 2022-01-15 13:23 | HMH.PTEV ---
Physical Therapy Evaluation Rehab PT IP Evaluation Start: 01/15/22 10:59 Freq: ONCE Status: Active Protocol: Document 01/15/22 13:15 FELICE (Rec: 01/15/22 13:23 SOLANGEBRIAN [id number]) Subjective/History History History This is the initial IP PT evaluation for Raul Sneed. Pt is a 76 y/o male admitted to [facility] for acute CVA. Pt rpeorts he was at home eating and began feeling bad. Pt had difficulty w/ speech and R side weakness and movement Subjective Subjective Pt reports willig to participate w/ therapy - and daughter in room Pt alert to name and birthday - unable to tell therapist where he was and the year. Pt had difficulty finding words but was able to coherently answer yes/no questions Rehab PT IP Eval Objective Appearance Patient Behavior Cooperative,Fatigued Patient Orientation Name,Birthday Difficulty following instructions mild Speech Pattern Soft-Spoken Ambulation Patient Able to Ambulate Yes Ambulation Observation IP General Gait Pattern Observation Ataxic Gait,Shuffling Step Ambulation Distance (feet) 3 Ambulation Assistive Device None Ambulation Ability Minimal x 1 (25% assist) Balance Ability to Arise Able, uses arms to help Sitting Balance Leans or slides in chair Standing Balance Unsteady Dynamic Sitting Balance Ability Fair Dynamic Standing Balance Ability Poor Transfers Bed Transfer Ability Contact Guard/Hand Hold, Minimal x 1 (25% assist) Chair Transfer Ability Contact Guard/Hand Hold, Minimal x 1 (25% assist) Sit to Stand Bed Transfer Ability Contact Guard/Hand Hold, Minimal x 1 (25% assist) Sit to Stand Chair Transfer Ability Contact Guard/Hand Hold, Minimal x 1 (25% assist) ROM RUE PT ROM Status ABN Abnormal ROM Comment limited pre CVA d/t cancer mets in shoulder RLE PT ROM Status WFL MMT RUE PT MMT ABN Abnormal MMT Grade 3-/5 RLE PT MMT ABN Abnormal MMT Grade 3+/5 Rehab PT IP prob,goals,plan Problems Date of Evaluation: 01/15/22 PT IP Problem
--- NOTE | 2022-01-15 18:27 | PC.NURSE ---
Pt is alert to him self. I think he is more alert, just unable to find words. He is struggling to find correct term when speaking a sentence. If you ask yes or no questions he's able to answer. He got up to the chair with PT today. He sat up for a few hours and tolerated it well. No changes since last assessment.
[2022-01-16] VITALS (7 sets, daily range): BP systolic 157–179; BP diastolic 78–88; PULSE 55–65; RESP 16–18; TEMP 36.8–37.3; O2SAT 95–98; BMI 23.1; BMI 23.0
--- NOTE | 2022-01-16 04:00 | PC.NURSE ---
pt restless through the night, pt with noted weakness on right side and requires assistance x2 to pivot to chair and bed, gait belt used, pt a&o x4 but has a hard time gathering thoughts at times, VSS, family remains at bedside, no other issues or concerns noted at this time. no changes from previous assessment.
[2022-01-16 07:41] LABS: Basophils % 0.5 % (0.1-2.0); Eosinophils # 0.2 K/mm3 (0.0-0.4); Eosinophils % 2.1 % (0.1-12.0); Hematocrit 39.8 % (42.0-52.0); Hemoglobin 12.9 g/dL (14.1-18.0); Lymphocytes % 26.4 % (10-50); Mean Corpuscular HGB Conc 32.5 g/dL (31.8-35.4); Mean Corpuscular Hemoglobin 31.6 pg (27.0-31.2); Mean Corpuscular Volume 97.1 fl (80-94); Mean Platelet Volume 9.1 fl (7.4-10.4); Monocytes # 0.5 K/mm3 (0.1-1.0); Monocytes % 6.9 % (1.7-9.3); Neutrophils % 64.1 % (37.0-80.0); Platelet Count 114 K/mm3 (142-424); Red Cell Distribution Width 14.7 % (11.5-17.5); White Blood Count 7.8 K/mm3 (4.8-10.8)
[2022-01-16 07:50] LABS: Blood Urea Nitrogen 17 mg/dl (9-20); Calcium 7.8 mg/dl (8.4-10.2); Carbon Dioxide 26 mmol/L (22.0-30.0); Chloride 104 mmol/L (98-107); Creatinine Clearance Estimated 71 mL/min (50-200); Estimated Glomerular Filt Rate 94 ml/min (>60); GFR (African American) 114 ML/MIN (>60); Glucose 103 mg/dl (74-100); Sodium 138 mmol/L (136-145)
--- NOTE | 2022-01-16 09:18 | P.PN_ITS ---
Internal Medicine - PN: Subj *Date: 01/16/22 *Time: 09:18 Interval history: Did not rest well last night. No specific complaints, just restless. PT eval noted. No complaints of pain this morning. He has not had a bowel movement for 3 or 4 days. Exam Vital signs and Labs for Last 24 Hours: Temp Pulse Resp BP Pulse Ox 98.2 F 62 18 157/78 H 96 01/16/22 08:00 01/16/22 08:00 01/16/22 08:00 01/16/22 08:00 01/16/22 08:00 Laboratory Results - last 24 hr 01/16/22 07:03: WBC 7.8 D, RBC 4.10 L, Hgb 12.9 L, Hct 39.8 L, MCV 97.1 H, MCH 31.6 H, MCHC 32.5, RDW 14.7, Plt Count 114 L, MPV 9.1, Neut % (Auto) 64.1, Lymph % (Auto) 26.4, [place] % (Auto) 6.9, Eos % (Auto) 2.1, Baso % (Auto) 0.5, Neut # (Auto) 5.0, Lymph # (Auto) 2.0, [place] # (Auto) 0.5, Eos # (Auto) 0.2, Baso # (Auto) 0.0 01/16/22 07:03: Sodium 138, Potassium 4.0, Chloride 104, Carbon Dioxide 26, Anion Gap 12.0, BUN 17, Creatinine 0.80, Estimated Creat Clear 71, Estimated GFR 94, Est GFR ( Amer) 114, Glucose 103 H, Calcium 7.8 L I & O for Last 24 hours: Intake & Output 01/13/22 01/14/22 01/15/22 01/16/22 11:59 11:59 11:59 11:59 Intake Total 969 / 969 824 / 824 Output Total 1200 / 1200 450 / 450 Balance -231 / -231 374 / 374 Weight 174 lb 8 oz 174 lb Narrative: He is sitting up in the chair. He is alert and oriented. Affect is flat. Speech is more clear but he seems to have some word finding difficulties this morning. Lungs clear to auscultation. Heart is regular. Right arm and leg with 3+/5 strength. No edema Assessment and Plan (1) CVA (cerebral vascular accident) Status: Acute Qualifiers: CVA mechanism: unspecified Qualified Code(s): I63.9 - Cerebral infarction, unspecified Category: Medical Code(s): I63.9 - Cerebral infarction, unspecified (2) Metastatic lung cancer (metastasis from lung to other site) Status: Acute Category: Medical Code(s): C34.90 - Malignant neoplasm of unspecified part of unspecified bronchus or lung (3) ASCVD (arteriosclerotic cardiovascular disease) Status: Acute Category: Medical Code(s): I25.10 - Atherosclerotic heart disease of [place] coronary artery without angina pectoris (4) Presence of permanent cardiac pacemaker Status: Acute Category: Medical Code(s): Z95.0 - Presence of cardiac p acemaker (5) Constipation Status: Acute Category: Medical Code(s): K59.00 - Constipation, unspecified - Assessment and plan all Dx Assessment and Plan for all problems:: Continue rehab. Care management consult for skilled care placement. Add laxatives. Start Lipitor.
--- NOTE | 2022-01-16 13:38 | PC.NURSE ---
Rounded on pt, cleaned and straightened room. Family at bedside, pt in bed sleeping. No needs voiced.
--- NOTE | 2022-01-16 21:01 | PC.NURSE ---
Pt is A/O today. He is getting where he still is struggling to find words, but its getting better. He is getting strength back in his right arm, but right leg is still a deficit. He takes 3 people to transfer from the bed to chair, and reverse. He sat in the chair for a few hours today and tolerated it well. No changes since last assessment.
[2022-01-17] VITALS: BP 174/90; PULSE 60; PULSE 62; RESP 16; TEMP 36.9; O2SAT 95
[2022-01-17 04:00] VITALS: BP 182/88; PULSE 55; PULSE 62; RESP 17; TEMP 37.1; O2SAT 98
--- NOTE | 2022-01-17 04:55 | PC.NURSE ---
pt rested well after prn temazepam, family remains at bedside, pt with weakness noted to right side, pt requires assist x2 to stand and ambulate, pt is alert and orient but has difficulty at times with articulating words, pt is hypertensive despite sotalol as ordered, telemetry reveals paced rythm, no edema noted, no other issues or concerns at this time, no changes from previous assessment.
[2022-01-17 05:00] VITALS: BMI 23.0
[2022-01-17 08:00] VITALS: BP 129/79; PULSE 65; PULSE 70; RESP 14; TEMP 37.3; O2SAT 96
--- NOTE | 2022-01-17 09:31 | HMH.ACPN2 ---
<Abby Seo - Last Filed: 01/17/22 12:44> Internal Medicine - PN: Subj *Date: 01/17/22 *Time: 12:44 Interval history: Patient's biggest complaint is that he is just tired. States he slept well last night and wants to sleep today. He denies chest pain and shortness of breath. He is eating poorly. Exam Vital signs and Labs for Last 24 Hours: Temp Pulse Resp BP Pulse Ox 99.1 F 65 14 129/79 96 01/17/22 08:00 01/17/22 08:00 01/17/22 08:00 01/17/22 08:00 01/17/22 08:00 I & O for Last 24 hours: Intake & Output 01/14/22 01/15/22 01/16/22 01/17/22 11:59 11:59 11:59 11:59 Intake Total 969 / 969 824 / 824 1760 / 1760 Output Total 1200 / 1200 450 / 450 1800 / 1800 Balance -231 / -231 374 / 374 -40 / -40 Weight 174 lb 8 oz 174 lb 173 lb 15.115 oz - Constitutional no acute distress Comments: Awakened for physical assessment - *Routine Respiratory Exam Present: CTA bilaterally (Anteriorly and posteriorly) - *Routine Cardiovascular Exam Present: RRR - *Routine Abdominal Exam Present: soft, normoactive bowel sounds. Absent: tenderness - *Routine Extremities Exam Absent: edema, calf tenderness Comments: He is able to raise both legs. The right is weaker than the left - *Routine Neurological Exam Present: alert, normal speech (Speech is soft) Assessment and Plan (1) CVA (cerebral vascular accident) Status: Acute Qualifiers: CVA mechanism: unspecified Qualified Code(s): I63.9 - Cerebral infarction, unspecified Category: Medical Code(s): I63.9 - Cerebral infarction, unspecified (2) Metastatic lung cancer (metastasis from lung to other site) Status: Acute Category: Medical Code(s): C34.90 - Malignant neoplasm of unspecified part of unspecified bronchus or lung (3) ASCVD (arteriosclerotic cardiovascular disease) Status: Acute Category: Medical Code(s): I25.10 - Atherosclerotic heart disease of [place] coronary artery without angina pectoris (4) Presence of permanent cardiac pacemaker Status: Acute Category: Medical Code(s): Z95.0 - Presence of cardiac pacemaker (5) Constipation Status: Acute Category: Medical Code(s): K59.00 - Constipation, unspecified - Assessment and plan all Dx Assessment and Plan for all problems:: Physical therapy to see patient today. Discharge planning in progress <Jean ClaudeNarendra mancia - Last Filed: 01/17/22 17:58> Internal Medicine - PN: Subj *Date: 01/17/22 *Time: 17:56 Exam Vital signs and Labs for Last 24 Hours: Temp Pulse Resp BP Pulse Ox 98.4 F 60 16 162/86 H 96 01/17/22 15:56 01/17/22 16:00 01/17/22 15:56 01/17/22 15:56 01/17/22 15:56 I & O for Last 24 hours: Intake & Output 01/15/22 01/16/22 01/17/22 01/18/22 11:59 11:59 11:59 11:59 Intake Total 969 / 969 824 / 824 1760 / 1760 120 / 120 Output Total 1200 / 1200 450 / 450 1800 / 1800 625 / 625 Balance -231 / -231 374 / 374 -40 / -40 -505 / -505 Weight 174 lb 8 oz 174 lb 173 lb 15.115 oz Assessment and Plan (1) CVA (cerebral vascular accident) Status: Acute Qualifiers: CVA mechanism: unspecified Qualified Code(s): I63.9 - Cerebral infarction, unspecified Category: Medical Code(s): I63.9 - Cerebral infarction, unspecified (2) Metastatic lung cancer (metastasis from lung to other site) Status: Acute Category: Medical Code(s): C34.90 - Malignant neoplasm of unspecified part of unspecified bronchus or lung (3) ASCVD (arteriosclerotic cardiovascular disease) Status: Acute Category: Medical Code(s): I25.10 - Atherosclerotic heart disease of [place] coronary artery without angina pectoris (4) Presence of permanent cardiac pacemaker Status: Acute Category: Medical Code(s): Z95.0 - Presence of cardiac pacemaker (5) Constipation Status: Acute Category: Medical Code(s): K59.00 - Constipation, unspecified - Assessment and plan all Dx Assessment and Plan for all pr
--- NOTE | 2022-01-17 10:20 | SW/DCPLANNER ---
Addendum entered by [facility] 01/20/22 15:52: This patient has been approved for [facility]. However Irma Caballero stated that due to patient currently taking a study chemo pill additional paperwork will need to be completed prior to admission at [facility]. Irma stated paperwork should be completed by tomorrow. Addendum entered by [facility] 01/19/22 09:59: Precert is still pending for this patient per Irma Caballero. Addendum entered by [facility] 01/18/22 08:20: This patient has been accepted to [facility] pending precert. I will continue to follow up with Irma at [facility]. Addendum entered by [facility] 01/17/22 13:01: Irma Caballero is currently reviewing patient information. Original Note: This patient has requested for information to be faxed to [facility]. Patient information information has been faxed to [facility] and I will follow up with intake once information is reviewed. Per Dr Silverio patient is medically stable for discharge.
--- NOTE | 2022-01-17 10:35 | HMH.SLAPHASI ---
Speech & Language Evaluation Speech/Language Aphasia Evaluation Start: 01/17/22 10:08 Freq: once Status: Complete Protocol: Document 01/17/22 10:08 KIRSTY (Rec: 01/17/22 10:34 KIRSTY [id number]) Aphasia Assessment/Goals/Plan Assessment Date of Evaluation: 01/17/22 Evaluation Type Initial Certification Assessment/Problems Acute CVA per MD order Does Patient Qualify for Service Yes Qualify/Failure Comment Pt would benefit from skilled therapy services 2' cog/ linguistic deficit. Plan Pt will be seen # times/week 3 for # weeks 4 Anticipate reaching STG in # weeks 2 Anticipate reaching LTG in # weeks 4 Pt/Guardian verbally ack understanding Yes of dx/prognosis/goals Pt/Guardian verbally ack understanding Yes of/consent to tx prog G -code Required No STG-Attending/Orientation/Memory Orientation 100 Memory Recall 70 STG-Divergent Thinking Deductive Reasoning 70 Jail Goals Increase cognitive skills to communicate Yes w/family & friends Education Instructions provided Reviewed assessment performance with family members present and discussed POC. Pt/Caregiver Able to Recall Information Able to recall/restate Speech & Language HPI History Present Illness Description of Patient Problem Pt is a 76 yo male presenting with cognitive/linguistic impairments following an acute CVA. He presented tp ED via EMS following difficulty speaking and 'feeling bad.' CT scan negative. PMH significant for advanced metalx lung cancer and is currently enrolled in a clinical trial at [place]. Atherosclerotic heart dz, HTN , and an internal pacemaker. He was seen at the bedside for a CSE and cognitive/ linguistic evaluation. Pt/Caregiver Concerns Caregivers reported difficulty with memory and following directions. Rehab Services Assessed Speech therapy Is this evaluation r/t stroke? Yes Language Primary Language [place] Aphasia Evaluations Communication Speech Intelligibility 65% intelligible to an unfamiliar listener with
--- NOTE | 2022-01-17 10:43 | HMH.SLDYSPHA ---
Speech & Language Evaluation Speech/Language Dysphagia Evaluation Start: 01/17/22 10:08 Freq: ONCE Status: Active Protocol: Document 01/17/22 10:08 KIRSTY (Rec: 01/17/22 10:34 KIRSTY [id number]) Speech & Language HPI History Present Illness Description of Patient Problem Pt is a 76 yo male presenting with cognitive/linguistic impairments following an acute CVA. He presented tp ED via EMS following difficulty speaking and 'feeling bad.' CT scan negative. PMH significant for advanced metalx lung cancer and is currently enrolled in a clinical trial at [facility]. Atherosclerotic heart dz, HTN , and an internal pacemaker. He was seen at the bedside for a CSE and cognitive/ linguistic evaluation. Pt/Caregiver Concerns Caregivers reported difficulty with memory and following directions. Rehab Services Assessed Speech therapy Is this evaluation r/t stroke? Yes Language Primary Language [place] Dysphagia Assess/Goals/Plan Assessment Date of Evaluation: 01/17/22 Evaluation Type Initial Certification Assessment/Problems Acute CVA per MD order Does Patient Qualify for Service No Qualify/Failure Comment All trials completed demonstrated to be WNL Recommendations PHYSICIAN CERTIFICATION: The specified therapy services are required, authorized, and reviewed every 30 days. Diet Recommendations Normal Liquid Type Recommendations Normal/Thin SL Swallow Guidelines Standard Aspiration Prec. Dysphagia Swallow Precautions/Strategies Sitting Upright (90 deg),Small Bites and Sips,Alternate Liquids/Solids Plan Pt/Guardian verbally ack understanding Yes of dx/prognosis/goals Pt/Guardian verbally ack understanding Yes of/consent to tx prog G -code Required No Education Instructions provided Discussed assessment and results with patient family and case management and all expressed to understand. Pt/Caregiver able to recall information Able to recall/restate General Information General Current Food Consistancy Regular,Thin Liquids Dentition Good Dentition Oxygen Status Room Air Patient Orientation
--- NOTE | 2022-01-17 12:50 | HMH.OTEV ---
OT Inpatient Evaluation Rehab OT IP Evaluation Start: 01/15/22 10:59 Freq: ONCE Status: Complete Protocol: Document 01/17/22 12:39 KRISTIN (Rec: 01/17/22 12:50 KRISTIN [id number]) Rehab OT IP Assessment Subjective History Mr. Sneed is a 76-year-old white male with a history of advanced stage metastatic lung cancer and coronary artery disease who presented to the ER today as a stroke alert. Around 1300 hrs., he was sitting at his kitchen table with his when he suddenly started feeling bad and was having difficulty speaking. He tried to get up from the table and walk but could not move his right side. At this point, his called EMS and he was brought to the ER. His initial CT scan was negative. He was hypertensive on arrival. ER physician contacted the stroke team and because of the fact he is on Eliquis and hypertensive he was not a candidate for thrombolytics. They recommended CTA of the head and neck which was carried out with no findings of large vessel blockages or hemorrhagic stroke therefore he was not a candidate for transfer at . I have seen the patient at the bedside in the ER. His is present. She gives most of the history. He is somnolent but awakens and answers questions appropriately. He is soft-spoken but his speech is clear. Denies headache or visual disturbance. He has movement in his right arm and right leg but states they feel heavy. 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
[2022-01-17 15:56] VITALS: BP 162/86; PULSE 66; RESP 16; TEMP 36.9; O2SAT 96
[2022-01-17 16:00] VITALS: PULSE 60
--- NOTE | 2022-01-17 17:15 | PC.NURSE ---
Patient remains A&Ox4 but delayed to answer. Patient has became more active with visitors at bedside. Patient's right side remains mild weakness. He remains on room air with lung sounds clear throughout. No BM reported thus far in this RN's shift. Patient has been NSR to paced on telemetry. No acute event thus far.
[2022-01-17 20:00] VITALS: BP 150/80; PULSE 63; PULSE 68; RESP 18; TEMP 37.1; O2SAT 94
[2022-01-18] VITALS (8 sets, daily range): BP systolic 139–161; BP diastolic 75–89; PULSE 62–72; RESP 14–18; TEMP 36.6–37.4; O2SAT 96–99; BMI 22.9
--- NOTE | 2022-01-18 06:17 | PC.NURSE ---
Patient is A&O x4 with delayed speech. Patient has been assist x2 to stand for urinal. Right side deficits noted. Patient tolerating room air. Patient tele is sinus rhythm to paced. and daughter at bedside.
--- NOTE | 2022-01-18 10:22 | HMH.ACPN2 ---
<Abby Seo - Last Filed: 01/18/22 10:25> Internal Medicine - PN: Subj *Date: 01/18/22 *Time: 10:25 Interval history: Patient and family feel that he is doing better. He is not quite as lethargic today. He did work with physical therapy. Feels he is breathing well and denies chest pain. They are awaiting insurance approval for [facility] admission. Exam Vital signs and Labs for Last 24 Hours: Temp Pulse Resp BP Pulse Ox 98.1 F 65 14 151/78 H 99 01/18/22 08:00 01/18/22 08:00 01/18/22 08:00 01/18/22 08:00 01/18/22 08:00 I & O for Last 24 hours: Intake & Output 01/15/22 01/16/22 01/17/22 01/18/22 11:59 11:59 11:59 11:59 Intake Total 969 / 969 824 / 824 1760 / 1760 360 / 360 Output Total 1200 / 1200 450 / 450 1800 / 1800 2045 / 2045 Balance -231 / -231 374 / 374 -40 / -40 -1685 / -1685 Weight 174 lb 8 oz 174 lb 173 lb 15.115 oz 173 lb - Constitutional no acute distress Comments: Observed him standing to void. He was a little wobbly but otherwise did well. - *Routine Respiratory Exam Present: CTA bilaterally (Anteriorly and posteriorly) - *Routine Cardiovascular Exam Present: RRR - *Routine Abdominal Exam Present: soft, normoactive bowel sounds. Absent: tenderness - *Routine Extremities Exam Absent: edema, calf tenderness - *Routine Neurological Exam Present: alert, oriented X3 Assessment and Plan (1) CVA (cerebral vascular accident) Status: Acute Qualifiers: CVA mechanism: unspecified Qualified Code(s): I63.9 - Cerebral infarction, unspecified Category: Medical Code(s): I63.9 - Cerebral infarction, unspecified (2) Metastatic lung cancer (metastasis from lung to other site) Status: Acute Category: Medical Code(s): C34.90 - Malignant neoplasm of unspecified part of unspecified bronchus or lung (3) ASCVD (arteriosclerotic cardiovascular disease) Status: Acute Category: Medical Code(s): I25.10 - Atherosclerotic heart disease of [place] coronary artery without angina pectoris (4) Presence of permanent cardiac pacemaker Status: Acute Category: Medical Code(s): Z95.0 - Presence of cardiac pacemaker (5) Constipation Status: Acute Category: Medical Code(s): K59.00 - Constipation, unspecified - Assessment and plan all Dx Assessment and Plan for all problems:: Continue with current care. Awaiting definite rehab plans. <Narendra Silverio - Last Filed: 01/18/22 13:10> Internal Medicine - PN: Subj *Date: 01/18/22 *Time: 13:07 Exam Vital signs and Labs for Last 24 Hours: Temp Pulse Resp BP Pulse Ox 97.9 F 62 16 139/76 98 01/18/22 11:46 01/18/22 11:46 01/18/22 11:46 01/18/22 11:46 01/18/22 11:46 I & O for Last 24 hours: Intake & Output 01/16/22 01/17/22 01/18/22 01/19/22 11:59 11:59 11:59 11:59 Intake Total 824 / 824 1760 / 1760 360 / 360 60 / 60 Output Total 450 / 450 1800 / 1800 2045 / 2045 Balance 374 / 374 -40 / -40 -1685 / -1685 60 / 60 Weight 174 lb 173 lb 15.115 oz 173 lb Assessment and Plan (1) CVA (cerebral vascular accident) Status: Acute Qualifiers: CVA mechanism: unspecified Qualified Code(s): I63.9 - Cerebral infarction, unspecified Category: Medical Code(s): I63.9 - Cerebral infarction, unspecified (2) Metastatic lung cancer (metastasis from lung to other site) Status: Acute Category: Medical Code(s): C34.90 - Malignant neoplasm of unspecified part of unspecified bronchus or lung (3) ASCVD (arteriosclerotic cardiovascular disease) Status: Acute Category: Medical Code(s): I25.10 - Atherosclerotic heart disease of [place] coronary artery without angina pectoris (4) Presence of permanent cardiac pacemaker Status: Acute Category: Medical Code(s): Z95.0 - Presence of cardiac pacemaker (5) Constipation Status: Acute Category: Medical Code(s): K59.00 - Constipation, unspecified - Assessment and plan all Dx Assessment and P
--- NOTE | 2022-01-18 13:00 | PC.NURSE ---
received report on pt. pt eating lunch with family at bedside. pt pleasant, has no questions or concerns at this time.
--- NOTE | 2022-01-18 19:36 | PC.NURSE ---
pt has done well this shift. up to chair most of the day with family at bedside. alert X4. assist X1-2, pt has been unsteady on gait and with transfer. awaiting to hear back from [facility] for dc possibly tomorrow. no complaints of pain, only pressure when he coughed, pt has told sai. lungs clear t/o. family still at bedside, call solorio and personal items within reach. no questions or concerns at this time.
[2022-01-19] VITALS (7 sets, daily range): BP systolic 120–141; BP diastolic 58–82; PULSE 63–81; RESP 16–20; TEMP 36.6–36.9; O2SAT 96–99; BMI 23.6
--- NOTE | 2022-01-19 03:49 | PC.NURSE ---
Pt has been resting throughout the night, pt assisted x2 from chair to bed, pt stood up to use urinal 2 times this shift with assist x2. Pt has complained of pain one time, treated prn per aug. Pt has right sided weakness. O2 >95% on room air. Tele shows NSR. Family at the bedside.
--- NOTE | 2022-01-19 08:30 | HMH.ACPN2 ---
<Rosario Arias - Last Filed: 01/19/22 08:30> Internal Medicine - PN: Subj *Date: 01/19/22 *Time: 08:30 Interval history: Patient states he is feeling about the same today. He slept off and on throughout the night. He has not eaten much breakfast this morning. He denies any pain other than a headache. His daughter states it was periodic but now seems consistent. Exam Vital signs and Labs for Last 24 Hours: Temp Pulse Resp BP Pulse Ox 97.8 F 65 18 139/82 99 01/19/22 03:40 01/19/22 04:00 01/19/22 03:40 01/19/22 03:40 01/19/22 03:40 I & O for Last 24 hours: Intake & Output 01/16/22 01/17/22 01/18/22 01/19/22 11:59 11:59 11:59 11:59 Intake Total 824 / 824 1760 / 1760 360 / 360 820 / 820 Output Total 450 / 450 1800 / 1800 2045 / 2045 1840 / 1840 Balance 374 / 374 -40 / -40 -1685 / -1685 -1020 / -1020 Weight 174 lb 173 lb 15.115 oz 173 lb 178 lb 1 oz - Constitutional no acute distress - *Routine Respiratory Exam Present: CTA bilaterally - *Routine Cardiovascular Exam Present: RRR - *Routine Abdominal Exam Present: soft, normoactive bowel sounds. Absent: tenderness - *Routine Extremities Exam Absent: cyanosis, clubbing, edema - *Routine Skin Exam Present: warm. Absent: rash - *Routine Neurological Exam Present: alert, oriented X3 Assessment and Plan (1) CVA (cerebral vascular accident) Status: Acute Qualifiers: CVA mechanism: unspecified Qualified Code(s): I63.9 - Cerebral infarction, unspecified Category: Medical Code(s): I63.9 - Cerebral infarction, unspecified (2) Metastatic lung cancer (metastasis from lung to other site) Status: Acute Category: Medical Code(s): C34.90 - Malignant neoplasm of unspecified part of unspecified bronchus or lung (3) ASCVD (arteriosclerotic cardiovascular disease) Status: Acute Category: Medical Code(s): I25.10 - Atherosclerotic heart disease of [place] coronary artery without angina pectoris (4) Presence of permanent cardiac pacemaker Status: Acute Category: Medical Code(s): Z95.0 - Presence of cardiac pacemaker (5) Constipation Status: Acute Category: Medical Code(s): K59.00 - Constipation, unspecified - Assessment and plan all Dx Assessment and Plan for all problems:: Patient's only complaint is of his headache this morning. He does have pain medication ordered. Awaiting approval by insurance for bed at [place] [facility]. Will discuss further care with Dr. Silverio. <Narendra Silverio - Last Filed: 01/19/22 13:48> Internal Medicine - PN: Subj *Date: 01/19/22 *Time: 13:48 Exam Vital signs and Labs for Last 24 Hours: Temp Pulse Resp BP Pulse Ox 98.1 F 63 17 131/70 96 01/19/22 11:27 01/19/22 11:27 01/19/22 11:27 01/19/22 11:27 01/19/22 11:27 I & O for Last 24 hours: Intake & Output 01/17/22 01/18/22 01/19/22 01/20/22 11:59 11:59 11:59 11:59 Intake Total 1760 / 1760 360 / 360 1180 / 1180 120 / 120 Output Total 1800 / 1800 2045 / 2045 1840 / 1840 Balance -40 / -40 -1685 / -1685 -660 / -660 120 / 120 Weight 173 lb 15.115 oz 173 lb 178 lb 1 oz Assessment and Plan (1) CVA (cerebral vascular accident) Status: Acute Qualifiers: CVA mechanism: unspecified Qualified Code(s): I63.9 - Cerebral infarction, unspecified Category: Medical Code(s): I63.9 - Cerebral infarction, unspecified (2) Metastatic lung cancer (metastasis from lung to other site) Status: Acute Category: Medical Code(s): C34.90 - Malignant neoplasm of unspecified part of unspecified bronchus or lung (3) ASCVD (arteriosclerotic cardiovascular disease) Status: Acute Category: Medical Code(s): I25.10 - Atherosclerotic heart disease of [place] coronary artery without angina pectoris (4) Presence of permanent cardiac pacemaker Status: Acute Category: Medical Code(s): Z95.0 - Presence of cardiac pacemaker (5) Constipation Status: Acute Category: Medical
--- NOTE | 2022-01-19 18:10 | PC.NURSE ---
pt has done well t/o shift. been up to chair most of day. lungs clear and diminished. pt on RA tolerating well with sats @ 97%. vss.pt has c/o rt shoulder and neck pain, rating it at 4/10. sai aware. pt c/o double vision which has occured since CVA. pt left floor with family around 1600 and came back at 1730. 20g IV in LT AC SL. 20G IV IN LT FA WITH NS @50. now resting in bed with family at bedside, no concerns at this time.
[2022-01-20] VITALS (9 sets, daily range): BP systolic 116–145; BP diastolic 61–84; PULSE 56–81; RESP 16–18; TEMP 36.6–36.9; O2SAT 95–98; BMI 23.9
--- NOTE | 2022-01-20 06:58 | PC.NURSE ---
got pt up to chair for breakfast with 2 assists and gait belt
--- NOTE | 2022-01-20 08:32 | HMH.ACPN2 ---
<Rosario Arias - Last Filed: 01/20/22 08:32> Internal Medicine - PN: Subj *Date: 01/20/22 *Time: 08:32 Interval history: Patient states he feels a few steps behind everyone today. His daughter says his only pain happens in his right leg and arm after dinner. She is wondering if his pain medication can be scheduled at dinnertime to help with this. He slept all night and did eat most of his breakfast this morning. He denies any headache today. Exam Vital signs and Labs for Last 24 Hours: Temp Pulse Resp BP Pulse Ox 98.4 F 66 17 118/61 95 01/20/22 07:52 01/20/22 07:52 01/20/22 07:52 01/20/22 07:52 01/20/22 07:52 I & O for Last 24 hours: Intake & Output 01/17/22 01/18/22 01/19/22 01/20/22 11:59 11:59 11:59 11:59 Intake Total 1760 / 1760 360 / 360 1180 / 1180 480 / 480 Output Total 1800 / 1800 2045 / 2045 1840 / 1840 250 / 250 Balance -40 / -40 -1685 / -1685 -660 / -660 230 / 230 Weight 173 lb 15.115 oz 173 lb 178 lb 1 oz 180 lb 7 oz - Constitutional no acute distress - *Routine Respiratory Exam Present: CTA bilaterally - *Routine Cardiovascular Exam Present: RRR - *Routine Abdominal Exam Present: soft, normoactive bowel sounds. Absent: tenderness - *Routine Extremities Exam Absent: cyanosis, clubbing, edema - *Routine Skin Exam Present: warm. Absent: rash - *Routine Neurological Exam Present: alert, oriented X3 Assessment and Plan (1) CVA (cerebral vascular accident) Status: Acute Qualifiers: CVA mechanism: unspecified Qualified Code(s): I63.9 - Cerebral infarction, unspecified Category: Medical Code(s): I63.9 - Cerebral infarction, unspecified (2) Metastatic lung cancer (metastasis from lung to other site) Status: Acute Category: Medical Code(s): C34.90 - Malignant neoplasm of unspecified part of unspecified bronchus or lung (3) ASCVD (arteriosclerotic cardiovascular disease) Status: Acute Category: Medical Code(s): I25.10 - Atherosclerotic heart disease of [place] coronary artery without angina pectoris (4) Presence of permanent cardiac pacemaker Status: Acute Category: Medical Code(s): Z95.0 - Presence of cardiac pacemaker (5) Constipation Status: Acute Category: Medical Code(s): K59.00 - Constipation, unspecified - Assessment and plan all Dx Assessment and Plan for all problems:: Awaiting insurance approval to discharge to [facility]. Patient's daughter requests another suppository for constipation. We will order this this morning. <Narendra Silverio - Last Filed: 01/20/22 13:09> Internal Medicine - PN: Subj *Date: 01/20/22 *Time: 13:08 Exam Vital signs and Labs for Last 24 Hours: Temp Pulse Resp BP Pulse Ox 97.9 F 60 16 123/68 98 01/20/22 11:16 01/20/22 12:18 01/20/22 11:16 01/20/22 11:16 01/20/22 11:16 I & O for Last 24 hours: Intake & Output 01/18/22 01/19/22 01/20/22 01/21/22 11:59 11:59 11:59 11:59 Intake Total 360 / 360 1180 / 1180 480 / 480 Output Total 2045 / 2045 1840 / 1840 250 / 250 Balance -1685 / -1685 -660 / -660 230 / 230 Weight 173 lb 178 lb 1 oz 180 lb 7 oz Assessment and Plan (1) CVA (cerebral vascular accident) Status: Acute Qualifiers: CVA mechanism: unspecified Qualified Code(s): I63.9 - Cerebral infarction, unspecified Category: Medical Code(s): I63.9 - Cerebral infarction, unspecified (2) Metastatic lung cancer (metastasis from lung to other site) Status: Acute Category: Medical Code(s): C34.90 - Malignant neoplasm of unspecified part of unspecified bronchus or lung (3) ASCVD (arteriosclerotic cardiovascular disease) Status: Acute Category: Medical Code(s): I25.10 - Atherosclerotic heart disease of [place] coronary artery without angina pectoris (4) Presence of permanent cardiac pacemaker Status: Acute Category: Medical Code(s): Z95.0 - Presence of cardiac pacemaker (5) Constipation Status: Acute
--- NOTE | 2022-01-20 11:18 | HMH.DCSUM ---
General - General Admission date:: 01/14/22 Discharge date: 01/20/22 HPI HPI: Mr. Sneed is a 76-year-old white male with a history of advanced stage metastatic lung cancer and coronary artery disease who presented to the ER today as a stroke alert. Around 1300 hrs., he was sitting at his kitchen table with his when he suddenly started feeling bad and was having difficulty speaking. He tried to get up from the table and walk but could not move his right side. At this point, his called EMS and he was brought to the ER. His initial CT scan was negative. He was hypertensive on arrival. ER physician contacted the stroke team and because of the fact he is on Eliquis and hypertensive he was not a candidate for thrombolytics. They recommended CTA of the head and neck which was carried out with no findings of large vessel blockages or hemorrhagic stroke therefore he was not a candidate for transfer at . I have seen the patient at the bedside in the ER. His is present. She gives most of the history. He is somnolent but awakens and answers questions appropriately. He is soft-spoken but his speech is clear. Denies headache or visual disturbance. He has movement in his right arm and right leg but states they feel heavy. 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 He is being admitted at this time for close monitoring of his neurologic status. Hospital Course Hospital Course: The patient was admitted with a clinical diagnosis of acute CVA, although not evident on imaging studies. stroke team was contacted by the emergency room and, given the fact he was already on Eliquis and CTA images did not show any large vessel occlusion or acute hemorrhagic stroke, they did not accept him in transfer. Management was medical. He was given labetalol for control of his blood pressure with a goal systolic pressure between 160-180. He had a carotid duplex showing less than 50% bilateral carotid stenosis. He did begin feeling better and had some residual weakness of the right side. His blood pressure improved. He had some constipation and laxatives were added. He was started on Lipitor. He was seen by physical therapy and they felt he would benefit from skilled therapy while at [facility] and would require continued skilled therapy to allow return to [facility] for highest level of function attainable. Physical therapy recommended rehab at [facility]. The patient was accepted at [facility] and was awaiting insurance approval. His biggest complaint was a headache off and on and fatigue. His appetite was also poor. He was seen by Occupational Therapy who recommended rehab as well. He was seen by speech therapy and there was no evidence of aspiration. He continued to work with physical therapy while in the hospital. He continued with constipation and was given some suppositories, which helped. Dr. Silverio did entertain the idea of doing an MRI, but the patient has a pacemaker and he was not sure of the compatibility. The patient was progressing as expected, therefore it was felt he would just need rehab. Insurance approved his stay at [facility] and he was stable to be discharged. Objective Vital signs: Temp Pulse Resp BP Pulse Ox 98.4 F 66 17 118/61 95 01/20/22 07:52 01/20/22 07:52 01/20/22 07:52 01/20/22 07:52 01/20/22 07:52 Narrative: - Constitutional no acute distress - *Routine Respiratory Exam Present: CTA bilaterally - *Routine Cardiovascular Exam Present: RRR - *Routine Abdominal Exam Present: soft, normoactive bowel sounds. Absent: tenderness - *Routine Extremities Exam Absent: cyanosis, clubbing, edema - *Routine Skin Exam Present: warm. Absent: rash - *Routine Neurological Exam Present: alert, oriented X3 DS: Diagnosis - Discharge Diagnosis (1) CVA (cer
--- NOTE | 2022-01-20 22:03 | PC.NURSE ---
patient and family stated that they did not like the lyrica, and had been refusing it at night. will relay this to morning staff for morning rounds. patient only has the medication scheduled for night time, and are requesting it to be set as prn or discontinued.
[2022-01-21] VITALS (7 sets, daily range): BP systolic 132–154; BP diastolic 66–77; PULSE 60–70; RESP 16–18; TEMP 36.5–36.9; O2SAT 97–99; BMI 24.2
--- NOTE | 2022-01-21 04:06 | PC.NURSE ---
Addendum entered by Dianna Everett RN 01/21/22 04:10: patient and family did request to keep fluids unhooked this shift. Original Note: patient has done okay this shift. family has been at bedside. did have some trouble falling asleep even with sleeping pill. patient states he feels confused asking if this is real , and asking why he is here. family and staff educated patient. patient was offered snacks, activities, tv, warm blanket ect. did finally accept a drink and once pillow was adjusted patient seemed to rest. did start complaining of pain in his r arm that goes down to his leg, but this only lasted briefly and when reassessed patient stated he had no pain. family and patient eager for discharge. patient currently sitting up in the bed, bed alarm is on
--- NOTE | 2022-01-21 08:46 | HMH.ACPN2 ---
<Rosario Arias - Last Filed: 01/21/22 08:46> Internal Medicine - PN: Subj *Date: 01/21/22 *Time: 08:46 Interval history: Patient was accepted at [facility] and had insurance approval yesterday. The discharge summary was done, but then [facility] had issues with him taking his experimental medication that he is given by [facility]. The patient has been getting this medicine here while in the hospital and taking his own pills that have been packaged. He states he is frustrated with the process this morning. He had difficulty sleeping last night. Taking the pain medication at dinnertime did seem to help. Exam Vital signs and Labs for Last 24 Hours: Temp Pulse Resp BP Pulse Ox 98.2 F 68 18 132/77 97 01/21/22 04:00 01/21/22 04:00 01/21/22 04:00 01/21/22 04:00 01/21/22 04:00 I & O for Last 24 hours: Intake & Output 01/18/22 01/19/22 01/20/22 01/21/22 11:59 11:59 11:59 11:59 Intake Total 360 / 360 1180 / 1180 480 / 480 480 / 480 Output Total 2045 / 2045 1840 / 1840 250 / 250 400 / 400 Balance -1685 / -1685 -660 / -660 230 / 230 80 / 80 Weight 173 lb 178 lb 1 oz 180 lb 7 oz 182 lb 9 oz - Constitutional no acute distress - *Routine Respiratory Exam Present: CTA bilaterally - *Routine Cardiovascular Exam Present: RRR - *Routine Abdominal Exam Present: soft, normoactive bowel sounds. Absent: tenderness - *Routine Extremities Exam Absent: cyanosis, clubbing, edema - *Routine Skin Exam Present: warm. Absent: rash - *Routine Neurological Exam Present: alert, oriented X3 Still some slight residual right-sided weakness Assessment and Plan (1) CVA (cerebral vascular accident) Status: Acute Qualifiers: CVA mechanism: unspecified Qualified Code(s): I63.9 - Cerebral infarction, unspecified Category: Medical Code(s): I63.9 - Cerebral infarction, unspecified (2) Metastatic lung cancer (metastasis from lung to other site) Status: Acute Category: Medical Code(s): C34.90 - Malignant neoplasm of unspecified part of unspecified bronchus or lung (3) ASCVD (arteriosclerotic cardiovascular disease) Status: Acute Category: Medical Code(s): I25.10 - Atherosclerotic heart disease of [place] coronary artery without angina pectoris (4) Presence of permanent cardiac pacemaker Status: Acute Category: Medical Code(s): Z95.0 - Presence of cardiac pacemaker (5) Constipation Status: Acute Category: Medical Code(s): K59.00 - Constipation, unspecified - Assessment and plan all Dx Assessment and Plan for all problems:: Awaiting approval now from [facility] for transfer. <Narendra Silverio - Last Filed: 01/21/22 18:13> Internal Medicine - PN: Subj *Date: 01/21/22 *Time: 18:12 Exam Vital signs and Labs for Last 24 Hours: Temp Pulse Resp BP Pulse Ox 98.2 F 67 18 134/66 98 01/21/22 16:00 01/21/22 16:00 01/21/22 16:00 01/21/22 16:00 01/21/22 16:00 I & O for Last 24 hours: Intake & Output 01/19/22 01/20/22 01/21/22 01/22/22 11:59 11:59 11:59 11:59 Intake Total 1180 / 1180 480 / 480 720 / 720 360 / 360 Output Total 1840 / 1840 250 / 250 400 / 400 321 / 321 Balance -660 / -660 230 / 230 320 / 320 39 / 39 Weight 178 lb 1 oz 180 lb 7 oz 182 lb 9 oz Assessment and Plan (1) CVA (cerebral vascular accident) Status: Acute Qualifiers: CVA mechanism: unspecified Qualified Code(s): I63.9 - Cerebral infarction, unspecified Category: Medical Code(s): I63.9 - Cerebral infarction, unspecified (2) Metastatic lung cancer (metastasis from lung to other site) Status: Acute Category: Medical Code(s): C34.90 - Malignant neoplasm of unspecified part of unspecified bronchus or lung (3) ASCVD (arteriosclerotic cardiovascular disease) Status: Acute Category: Medical Code(s): I25.10 - Atherosclerotic heart disease of [place] coronary artery without angina pectoris (4) Presence of permanent cardia
--- NOTE | 2022-01-21 15:52 | PC.NURSE ---
bath/ambulate/transport Patient stood well with a walker and two assists to walk to the bathroom to get a shower and back to bed afterwards. Patient also stood for 5 mins earlier today around 1200. 1430 01/21/2022 Ivette Lea SRNA
--- NOTE | 2022-01-21 17:39 | PC.NURSE ---
Addendum entered by Prudence Aleman RN 01/21/22 17:58: Recvd call from Irma at [facility] and patient has decided to stop taking the experimental chemo drug and would like to move forward for bed placement at their facility. Original Note: Update from [facility] - spoke with Irma Lewis - 2 options 1.) [facility]'s protocol (for bed placement when patient is taking experimental chemo drug therapy) states their pharmacy must have the drug (Dontae-701) therapy study for the experimental drug the patient is taking for treatment from the facility providing the treatment, [facility]. It is [facility] protocol to not release the drug (Dontae-701) therapy study to any [facility] facility. 2.) If patient chooses to stop taking the experimental drug for the time the would be admitted to [facility] then the patient will be accepted. Per Imra at [facility]...... she has spoke with the family in depth of the protocols that are in place for both [facility] and [facility]. The family will discuss and make a decision and inform [facility] of their decision.
--- NOTE | 2022-01-21 22:50 | PC.NURSE ---
Irma from [facility] called at this time for an update on patient. Received updated vital signs. Stated the plan is to admit him tomorrow, unsure at the extract time.
[2022-01-22] VITALS: BP 150/75; PULSE 60; PULSE 62; RESP 16; TEMP 37.1; O2SAT 96
[2022-01-22 03:54] VITALS: BP 153/72; PULSE 67; RESP 16; TEMP 37.5; O2SAT 95
[2022-01-22 04:00] VITALS: PULSE 70
--- NOTE | 2022-01-22 04:09 | PC.NURSE ---
Pt has not rested well this shift. Pt has been very restless and unable to get comfortable in bed, daughter stated he did this same thing last night. Pt could state Name, , and place at beginning of shift. Around 0300 pt had to use bathroom. Pt stood up with x2 assist to void using the urinal and tolerated well. When sitting back down pt stated he felt a little dizzy. Patient sat on side of bed for a bit then helped patient back in bed comfortably. Pt reported no pain throughout shift. Pt has tolerated RA well. Family has remained at bedside throughout the night.
[2022-01-22 05:00] VITALS: BMI 23.6
[2022-01-22 08:00] VITALS: BP 141/93; PULSE 70; PULSE 71; RESP 18; TEMP 36.8; O2SAT 96; O2SAT 98
--- NOTE | 2022-01-22 09:39 | HMH.DCSUM ---
General - General Admission date:: 01/14/22 Discharge date: 01/22/22 HPI HPI: Mr. Sneed is a 76-year-old white male with a history of advanced stage metastatic lung cancer and coronary artery disease who presented to the [facility] the day of admission as a stroke alert. Around 1300 hrs., he was sitting at his kitchen table with his when he suddenly started feeling bad and was having difficulty speaking. He tried to get up from the table and walk but could not move his right side. At this point, his called EMS and he was brought to the ER. His initial CT scan was negative. He was hypertensive on arrival. ER physician contacted the stroke team and because of the fact he is on Eliquis and hypertensive he was not a candidate for thrombolytics. They recommended CTA of the head and neck which was carried out with no findings of large vessel blockages or hemorrhagic stroke therefore he was not a candidate for transfer at . He was subsequent admitted here for further observation, assessment, and treatment. Hospital Course Hospital Course: The patient was admitted with a clinical diagnosis of acute CVA, although not evident on imaging studies. His initial neurologic exam showed 3+/5 right-sided weakness, mild dysarthria, and right hemianopsia. He was given labetalol for control of his blood pressure with a goal systolic pressure between 160-180. He had a carotid duplex showing less than 50% bilateral carotid stenosis. His blood pressure was gradually lowered with the addition of Norvasc. He was also started on Lipitor. Because of potential compatibility issues with his pacemaker, an MRI has not been done. He was assessed and treated by physical and occupational therapy while admitted and has made some progress. His speech has improved. He has had no issues with dysphagia. Still has right-sided hemianopsia. Strength on the right side is 4/5. 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 He has been continued on his fentanyl patch and as needed [place] for pain. He has complained of a headache intermittently during the admission and has had some constipation which has been addressed. It was felt he would benefit from acute care rehab at discharge and recommended referral to [facility]. The patient was accepted at [facility] but there was some delay in transfer while awaiting insurance approval and coordinating with his clinical drug trial for his lung cancer at [facility]. These issues have now been resolved and he is stable for discharge to [facility] for ongoing rehab services. Objective Vital signs: Temp Pulse Resp BP Pulse Ox 98.2 F 71 18 141/93 H 96 01/22/22 08:00 01/22/22 08:00 01/22/22 08:00 01/22/22 08:00 01/22/22 08:00 - *Routine HEENT Exam Head: Present: normocephalic, atraumatic Eye: Present: EOMI, PERRL ENT: Present: mucous membranes moist, dentition normal - *Routine Neck Exam Absent: carotid bruit, lymphadenopathy, thyromegaly - *Routine Respiratory Exam Present: CTA bilaterally. Absent: wheezes - *Routine Cardiovascular Exam Present: RRR. Absent: murmur - *Routine Abdominal Exam Present: soft, normoactive bowel sounds. Absent: tenderness, distended - *Routine Extremities Exam Absent: edema Comments: decreased ROM right shoulder - *Routine Skin Exam Present: dry, warm, rash - *Routine Neurological Exam Present: alert, oriented X3, motor deficit (4/5 right arm and leg; right hemanopsia). Absent: altered mental status DS: Diagnosis - Discharge Diagnosis (1) CVA (cerebral vascular accident) Status: Acute (2) Metastatic lung cancer (metastasis from lung to other site) Status: Acute (3) ASCVD (arteriosclerotic cardiovascular disease) Status: Acute (4) Presence of permanent cardiac pacemaker Status: Acute (5) Constipation St
--- NOTE | 2022-01-22 11:25 | PC.NURSE ---
Discharge pending per [facility] for patient to arrive at 2pm for bed availability Room 242 Stroke Unit
[2022-01-22 11:49] VITALS: BP 159/80; PULSE 71; RESP 18; TEMP 36.8; O2SAT 98
--- NOTE | 2022-01-22 12:45 | PC.NURSE ---
called gave report to Raul Romero RN at [facility] Stroke Unit
== END 2022-01-22 13:15 | DRG 65 ==
LOC: ER 16:29 → 2ND 22:47
PROVIDERS: Admitting Provider Family Medicine; Emergency Provider Emergency Medicine; PCP Family Medicine; Visit Provider Family Medicine
DX: I63.9 Cerebral infarction, unspecified (principal); C34.90 Malignant neoplasm of unspecified part of unspecified bronchus or lung; C79.9 Secondary malignant neoplasm of unspecified site; G81.91 Hemiplegia, unspecified affecting right dominant side; I10 Essential (primary) hypertension; I25.10 Atherosclerotic heart disease of native coronary artery without angina pectoris; Z95.0 Presence of cardiac pacemaker
CPT/HCPCS: 70450; 70496; 70498; 71045; 80048; 85025; 85610; 85730; 92523; 92610; 93005; 93880; 97110; 97116; 97129; 97130; 97162; 97165; 97530; 97535; 99285; C9803; J2405; Q9967; U0003; U0005

== ENCOUNTER 2022-03-18 17:28 | Emergency (ER) | payer MEDICARE, SELFPAY ==
[2022-03-18] VITALS (9 sets, daily range): BP systolic 97–133; BP diastolic 63–83; PULSE 72–85; RESP 17–18; TEMP 36.7–36.9; O2SAT 96–98; BMI 23.1
--- NOTE | 2022-03-18 18:36 | PC.NURSE ---
1829- nose clamped placed on pt at this time, notified JENNY JORGE
--- NOTE | 2022-03-18 18:37 | XR_ITS ---
PROCEDURE INFORMATION: Exam: XR Chest Exam date and time: 03/18/2022 7:02 PM Age: 76 years old Clinical indication: Condition or disease; Lung condition and disease; Cancer of the lung; Left; Unspecified; Additional info: Weakness TECHNIQUE: Imaging protocol: Radiologic exam of the chest. Views: 1 view. COMPARISON: CR XR CHEST PORTABLE 01/14/2022 2:01 PM FINDINGS: Tubes, catheters and devices: Pacemaker. Lungs: No lobar consolidation, pleural effusion or pulmonary edema. Pleural spaces: See Lungs finding. Heart/Mediastinum: Unremarkable. No cardiomegaly. Diaphragm: Mild elevation right hemidiaphragm Bones/joints: Sclerotic changes most evident proximal right humerus in this patient with a known diagnosis of metastatic disease. IMPRESSION: 1. No lobar consolidation, pleural effusion or pulmonary edema. 2. Sclerotic changes most evident proximal right humerus in this patient with a known diagnosis of metastatic disease.
[2022-03-18 18:47] LABS: Basophils # 0.1 K/mm3 (0-0.2); Basophils % 1.2 % (0.1-2.0); Eosinophils # 0.7 K/mm3 (0.0-0.4); Eosinophils % 7.6 % (0.1-12.0); Hematocrit 39.6 % (42.0-52.0); Hemoglobin 13.5 g/dL (14.1-18.0); Lymphocytes # 2.6 K/mm3 (0.7-4.5); Lymphocytes % 26.5 % (10-50); Mean Corpuscular HGB Conc 34.2 g/dL (31.8-35.4); Mean Corpuscular Hemoglobin 32.8 pg (27.0-31.2); Mean Platelet Volume 9.9 fl (7.4-10.4); Monocytes # 0.7 K/mm3 (0.1-1.0); Monocytes % 7.2 % (1.7-9.3); Neutrophils # 5.7 K/mm3 (1.8-7.8); Neutrophils % 57.6 % (37.0-80.0); Platelet Count 89 K/mm3 (142-424); Red Blood Count 4.12 M/mm3 (4.60-6.20); Red Cell Distribution Width 15.1 % (11.5-17.5); White Blood Count 9.9 K/mm3 (4.8-10.8)
[2022-03-18 18:51] LABS: Alanine Aminotransferase 107 U/L (12-78); Albumin Level 3.4 g/dl (3.5-5.0); Alkaline Phosphatase 1294 U/L (38-126); Anion Gap 15.7 mEq/L (5-15); Aspartate Amino Transferase 106 U/L (17-59); Bilirubin,Total 0.9 mg/dl (0.2-1.3); Blood Urea Nitrogen 28 mg/dl (9-20); Calcium 8.3 mg/dl (8.4-10.2); Carbon Dioxide 28 mmol/L (22.0-30.0); Chloride 96 mmol/L (98-107); Creatinine Clearance Estimated 74 mL/min (50-200); Estimated Glomerular Filt Rate 73 ml/min (>60); GFR (African American) 88 ML/MIN (>60); Globulin 3.5 g/dL (1.3-3.2); Glucose 138 mg/dl (74-100); Magnesium 1.3 mg/dl (1.6-2.3); Potassium 4.7 mmoL/L (3.5-5.1); Sodium 135 mmol/L (136-145); Total Protein,Serum 6.9 g/dl (6.3-8.2)
[2022-03-18 18:56] LABS: C-Reactive Protein 54.1 mg/L (0-4)
[2022-03-18 19:10] LABS: Procalcitonin 0.418 ng/mL (0.0-2.0)
[2022-03-18 19:32] LABS: Erythrocyte Sedimentation Rate 18 mm/hr (0-20)
--- NOTE | 2022-03-18 19:44 | PC.NURSE ---
ICE PACK GIVEN FOR NOSEBLEED. EMESIS BAG GIVEN. FAMILY AT BEDSIDE. NO ACUTE DISTRESS NOTED. WCM.
--- NOTE | 2022-03-18 19:47 | PC.NURSE ---
Spoke with pt daughter Lisset on the phone at this time. Her phone number [phone] she would like for staff to call her when pt is d/c, she is their morning caregiver and is out of town this weekend.
--- NOTE | 2022-03-18 20:01 | PC.NURSE ---
shift change report given to shelbyrn
--- NOTE | 2022-03-18 20:16 | ECG_ITS ---
APPROVED REPORT Exam: Resting ECG HR:72 bpm ECG Measurements Heart Rate 72 AXES QRSd 82 QRS 55 QT 413 T 55 QTc 437 Conclusion ATRIAL FIBRILLATION ABNORMAL RHYTHM ECG UNCONFIRMED REPORT Electronically signed by : Bassam Bella MD 03/19/2022 09:50:13
--- NOTE | 2022-03-18 21:03 | PC.NURSE ---
RHINO ROCKET PLACED PER MD. PT TOLERATED WELL. RADHA.
--- NOTE | 2022-03-18 21:18 | HMH.EDEPIS ---
Discharge Plan Disposition Patient Disposition: Home, Self-Care Condition: Fair Prescriptions Prescriptions: No Action fentanyl 12 MCG/PATCH patch 72 hour 12 mcg TD Q72H sotalol 80 MG tablet 80 mg PO BID celecoxib 100 MG capsule 100 mg PO BIDP PRN (Reason: Mild Pain) apixaban 5 MG tablet 5 mg PO BID docusate sodium 100 MG capsule 100 mg PO BID prochlorperazine maleate 10 MG tablet 10 mg PO Q6HP PRN (Reason: NAUSEA & VOMITING) hydrocodone-acetaminophen 1 EACH tablet 1 tab PO Q4HP PRN (Reason: Severe Pain) royal jelly 500 MG capsule 1,500 mg PO DAILY Miscellaneous [Unknown Home Medication] 1 EACH Each 50 mg PO DAILY atorvastatin 40 MG tablet 40 mg PO HS 0RF polyethylene glycol 3350 17 GM powder in packet 17 gm PO DAILY 0RF hydrocodone-acetaminophen 1 TAB tablet 1 tab PO 1800 0RF amlodipine 5 MG tablet 5 mg PO DAILY 0RF aspirin 81 MG tablet,delayed release (DR/EC) 81 mg PO DAILY 0RF temazepam 15 MG capsule 15 mg PO HSP PRN (Reason: Sleep) 0RF Non Formulary [Pt's Own Home Medication] 1 EACH Each 2 each PO DAILY 0RF Referrals Follow up/Referrals: Provider,Referral, MD [Primary Care Provider] - See instructions Activity Restrictions/Add. Instructions Additional Instructions/Restrictions: Please follow-up with your PCP's office on Monday to see if they will remove it if not return to the ED to have it removed. Clinical Impressions Clinical Impression: Epistaxis Instructions Patient Instructions: DI for Nosebleed Discharge ED Provider: Brent Keys Epistaxis HPI General Chief complaint: Epistaxis Stated complaint: Nosebleed, Weakness Time Seen by Provider: 03/18/22 17:45 Mode of Arrival: EMS Source of Information: Patient and Spouse Limitations: No Limitations Description of Symptoms (Recalled from ER Triage Doc. by RN): Pt presents with L sided nose bleed x2 hrs [place]. Pt does not have a hx of nose bleeds. Pt is on Eliquis. Pt has not active bleeding from nose upon arrival but reports he feels like blood is going down the back of his throat, reporting nausea. History of Present Illness HPI Narrative: Patient is a 76-year-old male with a past medical history of lung cancer on oral chemotherapy who presents with a nosebleed. Patient states that for the last 2 hours he has had a left-sided nosebleed. He does not have a history of nosebleed but he is on Eliquis. He says that he thinks that it is slowed down but he can still feel blood trickling down the back of his throat and is making him nauseous. He has tried holding pressure. He also says he feels weak. He was just recently discharged from [facility]. Denies any fever chills peer denies any chest or abdominal pain. Related Data Home Medications Medication Instructions Recorded Confirmed Miscellaneous [Unknown Home 50 mg PO DAILY trial chemo 01/14/22 01/15/22 Medication] medication apixaban 5 mg tablet 5 mg PO BID Blood thinner 01/14/22 01/15/22 celecoxib 100 mg capsule 100 mg PO BIDP PRN Mild Pain 01/14/22 01/15/22 docusate sodium 100 mg capsule 100 mg PO BID CONSTIPATION 01/14/22 01/14/22 fentanyl 12 mcg/hr transdermal 12 mcg transdermal Q72H SEVERE PAIN 01/14/22 01/14/22 patch hydrocodone 10 mg-acetaminophen 1 tab PO Q4HP PRN Severe Pain 01/14/22 01/15/22 325 mg tablet prochlorperazine maleate 10 mg 10 mg PO Q6HP PRN NAUSEA & VOMITING 01/14/22 01/15/22 tablet royal jelly 500 mg capsule 1,500 mg PO DAILY Supplement 01/14/22 01/14/22 sotalol 80 mg tablet 80 mg PO BID High blood pressure 01/14/22 01/14/22 Previous Rx's Medication Instructions Recorded Non Formulary [Pt's Own Home 2 each PO DAILY 01/22/22 Medication] amlodipine 5 mg tablet 5 mg PO DAILY 01/22/22 aspirin 81 mg tablet,delayed 81 mg PO DAILY 01/22/22 release atorvastatin 40 mg tablet 40 mg PO HS 01/22/22 hydrocodone 5 mg-acetaminophen 325 1 tab PO 1800 01/01
== END 2022-03-18 21:59 | disposition home or self-care (01) ==
PROVIDERS: Emergency Provider Student in an Organized Health Care Education/Training Program
DX: R04.0 Epistaxis (principal); Z79.01 Long term (current) use of anticoagulants; R53.1 Weakness
CPT/HCPCS: 30901; 71045; 80053; 83735; 84145; 85025; 85651; 86140; 93005; 96361; 96374; 99284; J2405